=== PATIENT | male | born 1985 | race Caucasian/White ===

== ENCOUNTER 2020-03-25 10:42 | Inpatient (IN) | payer MEDICARE, OTHER ==
--- NOTE | 2020-03-25 11:14 | PDOC ---
History of Present Illness - General History Source: Patient Exam Limitations: No Limitations <Kusum Waldron - Last Filed: 03/25/20 20:45> <Donnie Britton - Last Filed: 03/26/20 19:14> - General Chief Complaint: Pain Stated Complaint: ABD. PAIN Time Seen by Provider: 03/25/20 10:48 Past History - Travel History Traveled outside of the country in the last 30 days: No Close contact w/someone who was outside of country & ill: No - Psycho-Social/Smoking History Smoking Status: No Smoking History: Never smoked Number of Cigarettes Smoked Daily: 0 Information on smoking cessation initiated: No - Substance Abuse Hx (Audit-C & DAST Scrn) How often the patient has a drink containing alcohol: Never Score: In Men: 4 or > Positive; In Women: 3 or > Positive: 0 Screen Result (Pos requires Nsg. Audit-10AR): Negative <Kusum Waldron - Last Filed: 03/25/20 20:45> <Donnie Britton - Last Filed: 03/26/20 19:14> - Medical History Allergies/Adverse Reactions: Allergies Allergy/AdvReac Type Severity Reaction Status Date / Time No Known Allergies Allergy Verified 09/10/12 06:57 Home Medications: Ambulatory Orders Fenofibrate Nanocrystallized [Tricor] 145 mg PO DAILY #30 tablet 09/13/12 Review of Systems - Review of Systems Able to Perform ROS?: Yes Comments:: 03/25/20 11:51 CONSTITUTIONAL: Absent: fever, chills, diaphoresis, generalized weakness, malaise, loss of appetite HEENT: Absent: rhinorrhea, nasal congestion, throat pain, throat swelling, difficulty swallowing, mouth swelling, ear pain, eye pain, visual Changes CARDIOVASCULAR: Absent: chest pain, loss of consciousness, palpitations, irregular heart rate, peripheral edema RESPIRATORY: Absent: cough, shortness of breath, dyspnea with exertion, orthopnea, wheezing, stridor, hemoptysis GASTROINTESTINAL: Present: Abdominal pain, vomiting, nausea absent: abdominal pain, abdominal distension, nausea, vomiting, diarrhea, constipation, melena, hematochezia GENITOURINARY: Absent: dysuria, frequency, urgency, hesitancy, hematuria, flank pain, genital pain MUSCULOSKELETAL: Absent: myalgia, arthralgia, joint swelling SKIN: Absent: rash, itching, pallor HEMATOLOGIC/IMMUNOLOGIC: Absent: easy bleeding, easy bruising, lymphadenopathy, frequent infections ENDOCRINE: Absent: unexplained weight gain, unexplained weight loss, heat intolerance, cold intolerance NEUROLOGIC: Absent: headache, focal weakness or paresthesias, dizziness, unsteady gait, seizure, mental status changes, bladder or bowel incontinence PSYCHIATRIC: Absent: anxiety, depression, suicidal or homicidal ideation, hallucinations. Is the patient limited Romansh proficient: No <Kusum Waldron - Last Filed: 03/25/20 20:45> *Physical Exam - Vital Signs Last Vital Signs Temp Pulse Resp BP Pulse Ox 98.5 F 65 17 121/76 99 03/25/20 10:44 03/25/20 10:44 03/25/20 10:44 03/25/20 10:44 03/25/20 10:44 - Physical Exam 03/25/20 11:53 GENERAL: Well developed, well nourished. Awake and alert. No acute distress. HEENT: Normocephalic, atraumatic. PERRLA, EOMI. No conjunctival pallor. Sclera are non- icteric. Moist mucous membranes. Oropharynx is clear. NECK: Supple. Full ROM. No JVD. Carotid pulses 2+ and symmetric, without bruits. No thyromegaly. No lymphadenopathy. CARDIOVASCULAR: Regular rate and rhythm. No murmurs, rubs, or gallops. Distal pulses are 2+ and symmetric. PULMONARY: No evidence of respiratory distress. Lungs clear to auscultation bilaterally. No wheezing, rales or rhonchi. ABDOMINAL: Tenderness palpation over McBurney's point, right lower quadrant with guarding. Positive Rovsing sign. Soft. Non-tender. Non-distended. No rebound or guarding. No organomegaly. Normoactive bowel sounds. MUSCULOSKELETAL Normal range of motion at all joints. No bony deformities or tenderness. No CVA tenderness. EXTREMITIES: No cyanosis. No clubbing. No edema. No calf tenderness. SKIN: Warm and dry. Normal capillary refill. No rashes. No jaundice. NEUROLOGICAL: Alert, awake, appropriate. Cranial nerves 2-12 intact. No deficits to light touch and temperature in face, upper extremities and lower extremities. No motor deficits in the in face, upper extremities and lower extremities. Normoreflexic in the upper and lower extremities. Normal speech. Toes are down-going bilaterally. Gait is normal without ataxia. PSYCHIATRIC: Cooperative. Good eye contact. Appropriate mood and affect. <Kusum Waldron - Last Filed: 03/25/20 20:45> - Vital Signs Last Vital Signs Temp Pulse Resp BP Pulse Ox 98.3 F 120 H 18 119/75 96 03/26/20 18:00 03/26/20 18:00 03/26/20 18:00 03/26/20 18:00 03/26/20 18:00 <Donnie Britton - Last Filed: 03/26/20 19:14> ED Treatment Course - LABORATORY CBC & Chemistry Diagram: 03/25/20 12:02 03/25/20 12:02 <Kusum Waldron - Last Filed: 03/25/20 20:45> - LABORATORY CBC & Chemistry Diagram: 03/26/20 18:32 03/26/20 06:00 - ADDITIONAL ORDERS Additional order review: 03/25/20 14:01 Urine Culture - Final Urine - Urine Clean Catch NO GROWTH OBTAINED 03/25/20 03/25/20 18:46 12:02 RBC 4.22 MCV 92.9 MCHC 38.3 H RDW 13.0 MPV 9.0 Neutrophils % 87.3 H D Lymphocytes % 7.8 L D Monocytes % 4.1 Eosinophils % 0.1 D Basophils % 0.7 POC Glucometer 164 - Medications Given in the ED: ED Medications Discontinued Medications Generic Name Dose Route Start Last Admin Trade Name Emiliano PRN Reason Stop Dose Admin Acetaminophen 1,000 mg 03/25/20 11:43 03/25/20 12:12 Ofirmev Injection - IVPB 03/25/20 11:44 1,000 mg ONCE ONE Administration Acetaminophen 1,000 mg 03/25/20 18:25 03/25/20 20:34 Ofirmev Injection - IVPB 03/25/20 18:26 1,000 mg ONCE ONE Administration Calcium Gluconate 1,000 mg 03/25/20 22:26 03/25/20 22:51 Calcium Gluconate 10% - IVPUSH 03/25/20 22:27 1,000 mg ONCE ONE Administration Calcium Gluconate 1,000 mg 03/26/20 01:48 03/26/20 02:00 Calcium Gluconate 10% - IVPUSH 03/26/20 01:49 1,000 mg ONCE ONE Administration Calcium Gluconate 1,000 mg 03/26/20 08:45 03/26/20 09:30 Calcium Gluconate 10% - IVPUSH 03/26/20 08:46 1,000 mg ONCE ONE Administration Hydromorphone HCl 0.5 mg 03/25/20 15:35 03/25/20 16:10 Dilaudid Injection - IVPB 03/25/20 15:36 0.5 mg ONCE ONE Administration Hydromorphone HCl 0.5 mg 03/25/20 19:01 03/25/20 19:25 Dilaudid Injection - IVPB 03/25/20 19:02 0.5 mg ONCE ONE Administration Hydromorphone HCl 0.5 mg 03/25/20 22:04 03/25/20 22:43 Dilaudid Vial - IVPUSH 03/25/20 22:05 0.5 mg ONCE ONE Administration Hydromorphone HCl 0.5 mg 03/26/20 02:34 03/26/20 02:48 Dilaudid Vial - IVPUSH 03/26/20 02:35 0.5 mg ONCE ONE Administration Hydromorphone HCl 0.5 mg 03/26/20 11:13 03/26/20 11:26 Dilaudid Injection - IVPUSH 03/26/20 11:14 0.5 mg ONCE ONE Administration Hydromorphone HCl 0.5 mg 03/26/20 11:13 03/26/20 10:26 Dilaudid Vial - IVPUSH 03/26/20 11:14 Not Given ONCE ONE Hydromorphone HCl 0.5 mg 03/26/20 17:01 03/26/20 18:27 Dilaudid Vial - IVPUSH 03/26/20 17:02 0.5 mg ONCE ONE Administration Sodium Chloride 1,000 mls @ 1,000 mls/hr 03/25/20 11:43 03/25/20 12:12 Normal Saline - IV 03/25/20 12:42 1,000 mls/hr ASDIR STA Administration Famotidine/Sodium Chloride 20 mg in 50 mls @ 100 mls/hr 03/25/20 11:43 03/25/20 12:13 Pepcid 20 Mg Premixed Ivpb - IVPB 03/25/20 12:12 100 mls/hr ONCE ONE Administration Lactated Ringer's 1,000 ml in 1,000 mls @ 125 mls/hr 03/25/20 13:45 03/25/20 17:17 Lactated Ringers Solution IV 125 mls/hr ASDIR PAMELA Administration Potassium Chloride/Dextrose/Sod Cl 20 meq in 1,000 mls @ 125 mls/hr 03/25/20 18:15 03/25/20 18:37 D5-1/2ns+20 Meq Kcl - IV 125 mls/hr ASDIR PAMELA Administration Potassium Chloride 10 meq in 100 mls @ 100 mls/hr 03/26/20 02:00 03/26/20 03:59 Potassium Chloride 10 Meq Premix Ivpb - IVPB 03/26/20 04:59 100 mls/hr Q60M PAMELA Administration Morphine Sulfate 4 mg 03/25/20 13:05 03/25/20 13:13 Morphine Injection - IVPUSH 03/25/20 13:06 4 mg ONCE ONE Administration Ondansetron HCl 4 mg 03/25/20 11:43 03/25/20 12:13 Zofran Injection IVPUSH 03/25/20 11:44 4 mg ONCE ONE Administration Polyethylene Glycol 17 gm 03/26/20 11:16 03/26/20 11:28 Miralax (For Daily Use) - PO 03/26/20 11:17 17 gm ONCE ONE Administration Potassium Chloride 40 meq 03/26/20 01:47 03/26/20 03:27 Potassium Chloride Oral Liquid PO 03/26/20 01:48 Not Given ONCE ONE Potassium Chloride 40 meq 03/26/20 06:23 03/26/20 06:44 Potassium Chloride Oral Liquid PO 03/26/20 06:24 40 meq ONCE ONE Administration Potassium Phos/Sodium Phos 1 packet 03/26/20 08:15 03/26/20 09:30 Phos-Nak Packet - PO 03/26/20 08:16 1 packet ONCE ONE Administration <Donnie Britton - Last Filed: 03/26/20 19:14> Medical Decision Making - Medical Decision Making 03/25/20 11:53 The patient is a 34-year-old male with no past medical history who presents to the ER today for abdominal pain starting this morning. He states that the pain was located in the middle of his stomach and has moved to his epigastric region. He states that he feels like there is a burning inside of his stomach. Denies any new foods. No sick contacts at home. Admits to nausea and vomiting. Denies fevers, chills, cough, diarrhea, chest pain and difficulty breathing. Denies alcohol use. A/P: Abdominal pain On exam patient is tender to palpation over McBurney's point as well as in the right lower quadrant and epigastric regions. Positive Rovsing sign. Cannot rule out appendicitis at this time. Basic labs, IV fluids and pain medication ordered. Reevaluate 03/25/20 18:14 CT negative for appendicitis however does show acute pancreatitis. No gallstones seen on ultrasound. Notable for fatty liver. CBD 0.5 cm, within normal limits Lipase over 9000. Patient is hypertriglyceridemia with a value over 4000. Likely triglyceride induced pancreatitis. We will need to place patient on an insulin drip, glucose 223 at this time. We will add fluids dextrose 5% half-normal saline with 20 Yanni use of potassium Patient to go to ICU. Case discussed with Dr. Velasquez. Attending Dr. Jean Baptiste. <Kusum Waldron - Last Filed: 03/25/20 20:45> - Medical Decision Making 03/26/20 19:14 I reviewed the case of the mid-level practitioner and was available for consultation while in the emergency department <Donnie Britton - Last Filed: 03/26/20 19:14> Discharge - Discharge Information Problems reviewed: Yes - Admission Yes <Kusum Waldron - Last Filed: 03/25/20 20:45> <Donnie Britton - Last Filed: 03/26/20 19:14> - Discharge Information Clinical Impression/Diagnosis: Hypertriglyceridemia Pancreatitis Qualifiers: Chronicity: acute Pancreatitis type: other Acute pancreatitis complication: no infection or necrosis Qualified Code(s): K85.80 - Other acute pancreatitis without necrosis or infection Condition: Guarded
[2020-03-25] MEDS ORDERED: SODIUM CHLORIDE 1,000 ML IV STA (11:43)
[2020-03-25] MEDS ORDERED: ONDANSETRON 4 MG/2 ML VIAL IVPUSH ONE (11:43)
[2020-03-25] MEDS ORDERED: FAMOTIDINE 20 MG/50 ML IVPB 20 MG/50 ML MG IVPB ONE ×2 (11:43→11:54)
[2020-03-25] MEDS ORDERED: ACETAMINOPHEN 1000 MG/100 ML VIAL (NON FORMULARY) IVPB ONE ×2 (11:43→18:25)
[2020-03-25] MEDS ORDERED: ACETAMINOPHEN INJECTION 100 ML IVPB ONE ×2 (11:54→20:31)
[2020-03-25 12:43] LABS: BASO % 0.7 % (0-2.0); EOS % 0.1 % (0-4.5); LYMPH % 7.8 % (8-40); MCH 36.5 pg (25.7-33.7); MEAN CELL VOLUME 92.9 fl (80-96); MONO % 4.1 % (3.8-10.2); NEUT % 87.3 % (42.8-82.8); PLATELET COUNT 216 K/MM3 (134-434); RBC 4.22 M/mm3 (4.00-5.60); WHITE BLOOD COUNT 13.2 K/mm3 (4.0-10.0)
[2020-03-25 12:52] LABS: INR 0.89 (0.83-1.09); PROTHROMBIN TIME (PATIENT) 10.5 SEC (9.7-13.0)
[2020-03-25] MEDS ORDERED: morphine CARPU-JECT 4 MG/1 ML DISP.SYRIN IVPUSH ONE (13:05)
[2020-03-25] MEDS ORDERED: morphine SULFATE 4 MG/ML VIAL ONE (13:08)
[2020-03-25 13:17] LABS: ALBUMIN 3.9 g/dl (3.4-5.0); ALK PHOS 106 U/L (45-117); ANION GAP 10 MMOL/L (8-16); BILIRUBIN,TOTAL 0.9 mg/dL (0.2-1); BLOOD UREA NITROGEN 13.1 mg/dL (7-18); CHLORIDE 97 mmol/L (98-107); CO2 26 mmol/L (21-32); CREATININE 0.7 mg/dL (0.55-1.3); GLUCOSE,RANDOM 229 mg/dL (74-106); LIPASE 9273 U/L (73-393); SODIUM 133 mmol/L (136-145); TOT PROT 7.8 g/dl (6.4-8.2)
[2020-03-25] MEDS ORDERED: LACTATED RINGERS SOLUTION 1,000 ML/1,000 ML INFUS.BAG IV SCH ×2 (13:45→20:00)
[2020-03-25 14:34] LABS: URINE APPEARANCE CLOUDY; URINE BILIRUBIN NEGATIVE (NEGATIVE); URINE COLOR YELLOW; URINE GLUCOSE (UA) NEGATIVE (NEGATIVE); URINE KETONE NEGATIVE (NEGATIVE); URINE LEUK ESTERASE NEGATIVE (NEGATIVE); URINE NITRITE NEGATIVE (NEGATIVE); URINE PROTEIN TRACE (NEGATIVE); URINE UROBILINOGEN 0.2 mg/dL (0.2-1.0)
[2020-03-25 14:49] LABS: HEMATOCRIT 39.8 % (35.4-49); HEMOGLOBIN 15.3 GM/dL (11.7-16.9); MCHC 38.3 g/dl (32.0-35.9)
--- NOTE | 2020-03-25 14:51 | EKG ---
Test Reason : Blood Pressure : / mmHG Vent. Rate : 059 BPM Atrial Rate : 059 BPM P-R Int : 150 ms QRS Dur : 108 ms QT Int : 430 ms P-R-T Axes : 045 002 025 degrees QTc Int : 425 ms SINUS BRADYCARDIA WITH PREMATURE SUPRAVENTRICULAR COMPLEXES INCOMPLETE RIGHT BUNDLE BRANCH BLOCK BORDERLINE ECG WHEN COMPARED WITH ECG OF 04-MAR-2011 09:56, PREMATURE SUPRAVENTRICULAR COMPLEXES ARE NOW PRESENT VENT. RATE HAS DECREASED BY 50 BPM INCOMPLETE RIGHT BUNDLE BRANCH BLOCK IS NOW PRESENT Confirmed by DALE LI MD ([id number]) on 03/25/2020 2:50:57 PM Referred By: Confirmed By:DALE LI MD
[2020-03-25] MEDS ORDERED: HYDROmorphone HCL CARPU-JECT 2 MG/1 ML DISP.SYRIN IVPB ONE ×2 (15:35→19:01)
[2020-03-25] MEDS ORDERED: HYDROmorphone HCl 2 MG/ML VIAL ONE ×2 (16:06→19:17)
[2020-03-25 17:23] LABS: LDL CHOLESTEROL (ONLY SJRH) 98 mg/dL (5-100)
[2020-03-25 17:30] LABS: CHOLESTEROL 334 mg/dL (50-200); HDL CHOLESTEROL 25 mg/dL (40-60); TRIGLYCERIDES > 4000 mg/dL (0-150)
[2020-03-25] MEDS ORDERED: INSULIN REGULAR HUMAN 100 UNITS/ML *VIAL ONE (18:13)
[2020-03-25] MEDS ORDERED: D5-1/2NS+20 MEQ KCL - 20 MEQ/1,000 ML INFUS.BAG IV SCH (18:15)
[2020-03-25] MEDS: INSULIN REGULAR 100 UNITS in SODIUM CHLORIDE 99 ML IVPB SCH (18:37)
--- NOTE | 2020-03-25 20:03 | CONSULT ---
Consultation: REQUESTING PROVIDER: Ambrocio Waldron CONSULT REQUEST: We have been asked to medically evaluate this patient for pancreatitis. HISTORY OF PRESENT ILLNESS: Pt is a 34 y/o male with hx of pancreatitis who presents with sudden onset epigastric abdominal pain this morning. Pt was laying down in bed and felt epigastric burning with increase in severity over the course of 1 hour. He reports pain radiating to RLQ. Motrin did not improve the pain. He has had loose yellow stool x1 in the morning, as well as nausea, vomiting, and loss of appetite. He denies fever and chills. He reports ETOH use on the weekends, drinking up to a 12 pack of beer. No family hx of pancreatitis. REVIEW OF SYSTEMS: see HPI PHYSICAL EXAMINATION Vital Signs - 24 hr 03/25/20 03/25/20 10:44 11:43 Temperature 98.5 F Pulse Rate 65 Respiratory 17 Rate Blood Pressure 121/76 O2 Sat by Pulse 99 98 Oximetry (%) GENERAL: Awake, alert, and fully oriented. HEAD: Normal with no signs of trauma. EYES: Pupils equal, round and reactive to light, extraocular movements intact, sclera anicteric, conjunctiva clear. EARS, NOSE, THROAT: Ears normal, nares patent, moist mucous membranes. NECK: Normal range of motion. LUNGS: Clear to auscultation bilaterally. HEART: Regular rate and rhythm, no murmur. ABDOMEN: Hard, epigastric tenderness, not distended, normoactive bowel sounds. MUSCULOSKELETAL: Normal range of motion at all joints. UPPER EXTREMITIES: Warm, well-perfused. No peripheral edema. LOWER EXTREMITIES: Warm, well-perfused. No peripheral edema. NEUROLOGICAL: Cranial nerves II-XII intact. Normal speech. PSYCHIATRIC: Cooperative. Good eye contact. Appropriate mood and affect. SKIN: Warm, dry, normal turgor. Laboratory Results - last 24 hr 03/25/20 03/25/20 03/25/20 12:02 12:02 12:02 WBC 13.2 H RBC 4.22 Hgb 15.3 Hct 39.8 MCV 92.9 MCH 36.5 H D MCHC 38.3 H RDW 13.0 Plt Count 216 D MPV 9.0 Absolute Neuts (auto) 11.5 H Neutrophils % 87.3 H D Lymphocytes % 7.8 L D Monocytes % 4.1 Eosinophils % 0.1 D Basophils % 0.7 Nucleated RBC % 0 PT with INR 10.50 INR 0.89 Sodium 133 L Potassium 4.0 Chloride 97 L Carbon Dioxide 26 Anion Gap 10 BUN 13.1 Creatinine 0.7 Est GFR (CKD-EPI)AfAm 140.71 Est GFR (CKD-EPI)NonAf 121.41 POC Glucometer Random Glucose 229 H Calcium 7.0 L Total Bilirubin 0.9 AST ALT Alkaline Phosphatase 106 Total Protein 7.8 Albumin 3.9 Triglycerides > 4000 H Cholesterol 334 H Total LDL Cholesterol 98 HDL Cholesterol 25 L Lipase 9273 H Urine Color Urine Appearance Urine pH Ur Specific [place] Urine Protein Urine Glucose (UA) Urine Ketones Urine Blood Urine Nitrite Urine Bilirubin Urine Urobilinogen Ur Leukocyte Esterase 03/25/20 03/25/20 03/25/20 14:01 18:46 19:24 WBC RBC Hgb Hct MCV MCH MCHC RDW Plt Count MPV Absolute Neuts (auto) Neutrophils % Lymphocytes % Monocytes % Eosinophils % Basophils % Nucleated RBC % PT with INR INR Sodium Potassium Chloride Carbon Dioxide Anion Gap BUN Creatinine Est GFR (CKD-EPI)AfAm Est GFR (CKD-EPI)NonAf POC Glucometer 164 163 Random Glucose Calcium Total Bilirubin AST ALT Alkaline Phosphatase Total Protein Albumin Triglycerides Cholesterol Total LDL Cholesterol HDL Cholesterol Lipase Urine Color Yellow Urine Appearance Cloudy Urine pH 7.0 Ur Specific [place] 1.018 Urine Protein Trace Urine Glucose (UA) Negative Urine Ketones Negative Urine Blood Negative Urine Nitrite Negative Urine Bilirubin Negative Urine Urobilinogen 0.2 Ur Leukocyte Esterase Negative Active Medications Active Medications Generic Name Dose Route Start Last Admin Trade Name Freq PRN Reason Stop Dose Admin Insulin Human Regular 100 100 mls @ 4 mls/hr 03/25/20 18:15 03/25/20 18:37 units/ Sodium Chloride IVPB 4 units/hr TITR PAMELA 4 mls/hr Administration Protocol 4 UNITS/HR Dextrose/Lactated Ringer's 1,000 mls @ 250 mls/hr 03/25/20 20:15 D5-Lr - IV ASDIR [facility] ASSESSMENT/PLAN: Pt is a 34 y/o male with hx of pancreatitis who presents with sudden onset epigastric abdominal pain this morning. Triglycerides were initially >4000 (out of range) and lipase was 9273. He is admitted for hypertriglyceridemia-induced acute pancreatitis. #neuro -awake and alert #cardio -hemodynamically stable -tele monitoring for significant hypertriglyceridemia #pulm -stable on room air -keep SpO2 >90 #GI -hypertriglyceridemia-induced acute pancreatitis -LR D5 @250mL/hr, titrate with following BGMs and fluid status -insulin gtt, stop when triglycerides <500 -hourly BGMs -Q12H triglycerides -monitor BMP for hypokalemia/hypoglycemia while on insulin -pain management- Dilaudid or demerol preferred over morphine because of increase in pressure of Sphincter of Oddi -can calculate [place] score at 48 hour monty #renal -monitor electrolytes -monitor Cr for hypoperfusion 2/2 vascular leak #ID -no evidence for infection at this time -continue to monitor lactic acid, WBC, vitals DVT Ppx Lovenox 40mg daily FEN LR D5 @250mL/hr monitor K, triglycerides NPO Dispo: ICU We will continue to follow the patient. Thank you for this consultative opportunity. Visit type - Emergency Visit Emergency Visit: Yes ED Registration Date: 03/25/20 Care time: The patient presented to the Emergency Department on the above date and was hospitalized for further evaluation of their emergent condition. - New Patient This patient is new to me today: Yes Date on this admission: 03/25/20 - Critical Care Critical Care patient: Yes Total Critical Care Time (in minutes): 36 Critical Care Statement: The care of this patient involved high complexity decision making to prevent further life threatening deterioration of the patient's condition and/or to evaluate & treat vital organ system(s) failure or risk of failure. ATTENDING PHYSICIAN STATEMENT I saw and evaluated the patient. I reviewed the resident's note and discussed the case with the resident. I agree with the resident's findings and plan as documented. SUBJECTIVE: OBJECTIVE: ASSESSMENT AND PLAN:
[2020-03-25 21:06] LABS: BLOOD UREA NITROGEN 10.7 mg/dL (7-18); CREATININE 0.7 mg/dL (0.55-1.3)
[2020-03-25 21:09] LABS: CALCIUM 6.8 mg/dL (8.5-10.1)
[2020-03-25] MEDS ORDERED: HYDROmorphone HCl 2 MG/ML VIAL IVPUSH ONE (22:04)
[2020-03-25 22:14] VITALS: BMI 28.3
[2020-03-25] MEDS ORDERED: CALCIUM GLUCONATE 10% - 1,000 MG/10 ML VIAL IVPUSH ONE (22:26)
[2020-03-25] MEDS: DEXTROSE 5%-LACTATED RINGERS 1,000 ML IV SCH (22:42)
[2020-03-25] MEDS: CHLORHEXIDINE GLUCONATE 4% CLEANSER FOR DECOLONIZATION TP SCH (22:43)
[2020-03-25] MEDS: MUPIROCIN 2% TOPICAL OINTMENT FOR DECOLONIZATION NS SCH (22:51)
[2020-03-26 01:00] LABS: ALBUMIN 3.3 g/dl (3.4-5.0); BILIRUBIN,TOTAL 0.4 mg/dL (0.2-1); BLOOD UREA NITROGEN 10.8 mg/dL (7-18); CALCIUM 7.3 mg/dL (8.5-10.1); CREATININE 0.7 mg/dL (0.55-1.3); POTASSIUM 3.3 mmol/L (3.5-5.1)
[2020-03-26] MEDS ORDERED: POTASSIUM CHLORIDE ORAL LIQUID 20 MEQ/15 ML PO ONE ×3 (01:47→21:06)
[2020-03-26] MEDS ORDERED: CALCIUM GLUCONATE 10% - 1,000 MG/10 ML VIAL IVPUSH ONE ×2 (01:48→08:45)
[2020-03-26] MEDS: KCL 10 MEQ IVPB 10 MEQ/100 ML INFUS.BAG IVPB SCH ×6 (02:00→22:12)
[2020-03-26] MEDS ORDERED: HYDROmorphone HCl 2 MG/ML VIAL IVPUSH ONE ×4 (02:34→22:27)
[2020-03-26 06:34] LABS: BASO % 0.2 % (0-2.0); EOS % 0.1 % (0-4.5); HEMATOCRIT 38.4 % (35.4-49); HEMOGLOBIN 13.1 GM/dL (11.7-16.9); LYMPH % 16.4 % (8-40); MCH 31.8 pg (25.7-33.7); MEAN CELL VOLUME 93.4 fl (80-96); MEAN PLT VOLUME 8.8 fl (7.5-11.1); MONO % 4.5 % (3.8-10.2); NEUT % 78.8 % (42.8-82.8); PLATELET COUNT 166 K/MM3 (134-434); RBC 4.11 M/mm3 (4.00-5.60); WHITE BLOOD COUNT 7.3 K/mm3 (4.0-10.0)
[2020-03-26 06:47] LABS: MAGNESIUM 2.1 mg/dL (1.8-2.4)
[2020-03-26 07:06] LABS: BILIRUBIN,TOTAL 0.4 mg/dL (0.2-1); BLOOD UREA NITROGEN 9.6 mg/dL (7-18); CALCIUM 7.2 mg/dL (8.5-10.1); CREATININE 0.8 mg/dL (0.55-1.3); MAGNESIUM 2.1 mg/dL (1.8-2.4); PHOSPHOROUS 2.4 mg/dL (2.5-4.9); POTASSIUM 3.9 mmol/L (3.5-5.1); TOT PROT 6.2 g/dl (6.4-8.2)
[2020-03-26] MEDS ORDERED: NAPH,MB-DB/K PH,MBDB POWDER PACKET PO ONE (08:15)
[2020-03-26] MEDS: ENOXAPARIN NA (PORCINE) 40 MG/0.4 ML DISP.SYRIN SQ SCH (09:30)
[2020-03-26] MEDS: DEXTROSE 5%-LACTATED RINGERS 1,000 ML IV SCH ×2 (09:31→20:30)
[2020-03-26] MEDS: MUPIROCIN 2% TOPICAL OINTMENT FOR DECOLONIZATION NS SCH ×2 (09:32→21:21)
[2020-03-26] MEDS ORDERED: HYDROmorphone HCL CARPU-JECT 2 MG/1 ML DISP.SYRIN IVPUSH ONE (11:13)
[2020-03-26] MEDS ORDERED: POLYETHYLENE GLYCOL 3350 119 GM BTL PO ONE (11:16)
[2020-03-26] MEDS ORDERED: HYDROmorphone HCl 2 MG/ML VIAL ONE (11:25)
--- NOTE | 2020-03-26 13:39 | CONSULT ---
Consultation: REQUESTING PROVIDER: Dr. Velasquez CONSULT REQUEST: We have been asked to medically evaluate this patient for apharesis. HISTORY OF PRESENT ILLNESS: Pt. is 34 y.o. M w/ PMHx. of pancreatitis 2/2 elevated triglycerides per patient presents with abdominal pain that started the morning of hospital admission. Pt. endorses pain when he hiccups and states that some morning he wakes up with a burning sensation in his lower chest/upper abdomen requiring him to drink water. Pt. endorses drinking 24 beers split over Sunday and Sunday every week. Pt. states that his abdomen is larger than normal but is unable to tell me when it began. He noticed it the day of admission. Pt. denies taking any medications at this time. Pt. does not have a PCP. Pt. endorses the urge to pass stool but the inability to do so. Pt. denies any blood in the stool or urine, night sweats, weight loss, or diarrhea. Pt. denies any family history of cancers, bleeding disorders, clotting disorders, high cholesterol or triglycerides. Pt. does endorse EtOH abuse in his uncles and cousins. Pt. endorses RLQ abdominal pain at rest that started today. Yesterday it was diffuse abdominal pain at rest that was most prominent in the epigastrium and RUQ on palpation. We are called to assess Pt. for apharesis to treat his hypertriglyceridemia. REVIEW OF SYSTEMS: As above PHYSICAL EXAMINATION Vital Signs - 24 hr 03/25/20 03/25/20 03/25/20 19:10 21:15 21:47 Temperature 98.9 F 99.7 F H Pulse Rate 98 H Pulse Rate [ 99 H 99 H Left Radial] Respiratory 16 18 14 Rate Blood Pressure 112/68 Blood Pressure 123/75 118/72 [Right Arm] O2 Sat by Pulse 97 98 98 Oximetry (%) 03/25/20 03/26/20 03/26/20 23:00 00:00 01:00 Temperature Pulse Rate 101 H 97 H 98 H Pulse Rate [ Left Radial] Respiratory 23 H 19 25 H Rate Blood Pressure 116/79 117/70 121/83 Blood Pressure [Right Arm] O2 Sat by Pulse 99 98 99 Oximetry (%) 03/26/20 03/26/20 03/26/20 02:00 03:00 04:00 Temperature 98.7 F Pulse Rate 101 H 104 H 106 H Pulse Rate [ Left Radial] Respiratory 25 H 18 16 Rate Blood Pressure 116/79 115/74 110/74 Blood Pressure [Right Arm] O2 Sat by Pulse 99 99 99 Oximetry (%) 03/26/20 06:00 Temperature 100.0 F H Pulse Rate 101 H Pulse Rate [ Left Radial] Respiratory 24 H Rate Blood Pressure 120/74 Blood Pressure [Right Arm] O2 Sat by Pulse 98 Oximetry (%) GENERAL: Awake, alert, and fully oriented, in no acute distress. HEAD: Normal with no signs of trauma. EYES: Sclera anicteric, conjunctiva clear. EARS, NOSE, THROAT: Ears normal, nares patent, oropharynx clear without exudates. Dry mucous membranes. LUNGS: Breath sounds equal, clear to auscultation bilaterally. No wheezes, and no crackles. No accessory muscle use. HEART: Regular rate and rhythm, normal S1 and S2 without murmur ABDOMEN: Firm but NOT rigid abdomen, epigastric and RUQ tenderness, BS + MUSCULOSKELETAL: Normal range of motion at all joints. No bony deformities or tenderness. No CVA tenderness. UPPER EXTREMITIES: 2+ radial pulses, warm, well-perfused. No cyanosis. No clubbing. Cap refill <2 seconds. No peripheral edema. LOWER EXTREMITIES: 2+ dorsal pedal pulses, warm, well-perfused. No calf tenderness. No peripheral edema. NEUROLOGICAL: No focal deficits appreciated, Normal speech. Gait not assessed PSYCHIATRIC: Cooperative. Good eye contact. Appropriate mood and affect. SKIN: Warm, dry, normal turgor Laboratory Results - last 24 hr 03/25/20 03/25/20 03/25/20 12:02 12:02 14:01 WBC RBC Hgb 15.3 Hct 39.8 MCV MCH MCHC 38.3 H RDW Plt Count MPV Absolute Neuts (auto) Neutrophils % Lymphocytes % Monocytes % Eosinophils % Basophils % Nucleated RBC % Sodium 133 L Potassium 4.0 Chloride 97 L Carbon Dioxide 26 Anion Gap 10 BUN 13.1 Creatinine 0.7 Est GFR (CKD-EPI)AfAm 140.71 Est GFR (CKD-EPI)NonAf 121.41 POC Glucometer Random Glucose 229 H Lactic Acid Calcium 7.0 L Phosphorus Magnesium Total Bilirubin 0.9 AST ALT Alkaline Phosphatase 106 Total Protein 7.8 Albumin 3.9 Triglycerides > 4000 H Cholesterol 334 H Total LDL Cholesterol 98 HDL Cholesterol 25 L Lipase 9273 H Urine Color Yellow Urine Appearance Cloudy Urine pH 7.0 Ur Specific [place] 1.018 Urine Protein Trace Urine Glucose (UA) Negative Urine Ketones Negative Urine Blood Negative Urine Nitrite Negative Urine Bilirubin Negative Urine Urobilinogen 0.2 Ur Leukocyte Esterase Negative 03/25/20 03/25/20 03/25/20 18:46 19:24 20:25 WBC RBC Hgb Hct MCV MCH MCHC RDW Plt Count MPV Absolute Neuts (auto) Neutrophils % Lymphocytes % Monocytes % Eosinophils % Basophils % Nucleated RBC % Sodium 135 L Potassium 4.0 Chloride 102 Carbon Dioxide 24 Anion Gap 9 BUN 10.7 Creatinine 0.7 Est GFR (CKD-EPI)AfAm 140.71 Est GFR (CKD-EPI)NonAf 121.41 POC Glucometer 164 163 Random Glucose 186 H Lactic Acid Calcium 6.8 L* Phosphorus Magnesium Total Bilirubin AST ALT Alkaline Phosphatase Total Protein Albumin Triglycerides Cholesterol Total LDL Cholesterol HDL Cholesterol Lipase Urine Color Urine Appearance Urine pH Ur Specific [place] Urine Protein Urine Glucose (UA) Urine Ketones Urine Blood Urine Nitrite Urine Bilirubin Urine Urobilinogen Ur Leukocyte Esterase 03/25/20 03/25/20 03/26/20 20:25 22:06 00:04 WBC RBC Hgb Hct MCV MCH MCHC RDW Plt Count MPV Absolute Neuts (auto) Neutrophils % Lymphocytes % Monocytes % Eosinophils % Basophils % Nucleated RBC % Sodium Potassium Chloride Carbon Dioxide Anion Gap BUN Creatinine Est GFR (CKD-EPI)AfAm Est GFR (CKD-EPI)NonAf POC Glucometer 145 151 Random Glucose Lactic Acid 1.3 Calcium Phosphorus Magnesium Total Bilirubin AST ALT Alkaline Phosphatase Total Protein Albumin Triglycerides Cholesterol Total LDL Cholesterol HDL Cholesterol Lipase Urine Color Urine Appearance Urine pH Ur Specific [place] Urine Protein Urine Glucose (UA) Urine Ketones Urine Blood Urine Nitrite Urine Bilirubin Urine Urobilinogen Ur Leukocyte Esterase 03/26/20 03/26/20 07 00:06 01:11 02:08 WBC RBC Hgb Hct MCV MCH MCHC RDW Plt Count MPV Absolute Neuts (auto) Neutrophils % Lymphocytes % Monocytes % Eosinophils % Basophils % Nucleated RBC % Sodium 137 Potassium 3.3 L Chloride 102 Carbon Dioxide 25 Anion Gap 10 BUN 10.8 Creatinine 0.7 Est GFR (CKD-EPI)AfAm 140.71 Est GFR (CKD-EPI)NonAf 121.41 POC Glucometer 154 147 Random Glucose 160 H Lactic Acid Calcium 7.3 L Phosphorus Magnesium 2.1 Total Bilirubin 0.4 AST 51 H ALT 66 H Alkaline Phosphatase 80 Total Protein 7.0 Albumin 3.3 L Triglycerides 2177 H Cholesterol Total LDL Cholesterol HDL Cholesterol Lipase Urine Color Urine Appearance Urine pH Ur Specific [place] Urine Protein Urine Glucose (UA) Urine Ketones Urine Blood Urine Nitrite Urine Bilirubin Urine Urobilinogen Ur Leukocyte Esterase 03/26/20 03/26/20 03/26/20 03:20 04:09 04:57 WBC RBC Hgb Hct MCV MCH MCHC RDW Plt Count MPV Absolute Neuts (auto) Neutrophils % Lymphocytes % Monocytes % Eosinophils % Basophils % Nucleated RBC % Sodium Potassium Chloride Carbon Dioxide Anion Gap BUN Creatinine Est GFR (CKD-EPI)AfAm Est GFR (CKD-EPI)NonAf POC Glucometer 153 100 120 Random Glucose Lactic Acid Calcium Phosphorus Magnesium Total Bilirubin AST ALT Alkaline Phosphatase Total Protein Albumin Triglycerides Cholesterol Total LDL Cholesterol HDL Cholesterol Lipase Urine Color Urine Appearance Urine pH Ur Specific [place] Urine Protein Urine Glucose (UA) Urine Ketones Urine Blood Urine Nitrite Urine Bilirubin Urine Urobilinogen Ur Leukocyte Esterase 03/26/20 03/26/20 03/26/20 06:00 06:00 08:40 WBC 7.3 RBC 4.11 Hgb 13.1 Hct 38.4 MCV 93.4 MCH 31.8 D MCHC 34.0 RDW 13.0 Plt Count 166 D MPV 8.8 Absolute Neuts (auto) 5.7 Neutrophils % 78.8 Lymphocytes % 16.4 D Monocytes % 4.5 Eosinophils % 0.1 Basophils % 0.2 Nucleated RBC % 0 Sodium 138 Potassium 3.9 Chloride 105 Carbon Dioxide 26 Anion Gap 7 L BUN 9.6 Creatinine 0.8 Est GFR (CKD-EPI)AfAm 133.20 Est GFR (CKD-EPI)NonAf 114.93 POC Glucometer 120 Random Glucose 120 H Lactic Acid Calcium 7.2 L Phosphorus 2.4 L Magnesium 2.1 Total Bilirubin 0.4 AST 36 ALT 50 Alkaline Phosphatase 66 Total Protein 6.2 L Albumin 3.0 L Triglycerides 1145 H Cholesterol Total LDL Cholesterol HDL Cholesterol Lipase Urine Color Urine Appearance Urine pH Ur Specific [place] Urine Protein Urine Glucose (UA) Urine Ketones Urine Blood Urine Nitrite Urine Bilirubin Urine Urobilinogen Ur Leukocyte Esterase 03/26/20 03/26/20 10:40 11:39 WBC RBC Hgb Hct MCV MCH MCHC RDW Plt Count MPV Absolute Neuts (auto) Neutrophils % Lymphocytes % Monocytes % Eosinophils % Basophils % Nucleated RBC % Sodium Potassium Chloride Carbon Dioxide Anion Gap BUN Creatinine Est GFR (CKD-EPI)AfAm Est GFR (CKD-EPI)NonAf POC Glucometer 104 Random Glucose Lactic Acid 0.8 Calcium Phosphorus Magnesium Total Bilirubin AST ALT Alkaline Phosphatase Total Protein Albumin Triglycerides Cholesterol Total LDL Cholesterol HDL Cholesterol Lipase Urine Color Urine Appearance Urine pH Ur Specific [place] Urine Protein Urine Glucose (UA) Urine Ketones Urine Blood Urine Nitrite Urine Bilirubin Urine Urobilinogen Ur Leukocyte Esterase Active Medications Generic Name Dose Route Start Last Admin Trade Name Emiliano PRN Reason Stop Dose Admin Chlorhexidine Gluconate 1 applic 03/25/20 22:00 03/25/20 22:43 Hibiclens For Decolonization - TP 1 applic HS PAMELA Administration Enoxaparin Sodium 40 mg 03/26/20 10:00 03/26/20 09:30 Lovenox - SQ 40 mg DAILY PAMELA Administration Insulin Human Regular 100 100 mls @ 4 mls/hr 03/25/20 18:15 03/25/20 18:37 units/ Sodium Chloride IVPB 4 units/hr TITR PAMELA 4 mls/hr Administration Protocol 4 UNITS/HR Dextrose/Lactated Ringer's 1,000 mls @ 250 mls/hr 03/25/20 20:15 03/26/20 09:31 D5-Lr - IV 250 mls/hr ASDIR PAMELA Administration Mupirocin 1 applic 03/25/20 22:00 03/26/20 09:32 Bactroban Ointment (For Decolonization) - NS 03/30/20 21:59 1 applic BID PAMELA Administration ASSESSMENT/PLAN: Pt. is 34 y.o. M w/ PMHx. of pancreatitis 2/2 elevated triglycerides per patient presents with abdominal pain that started the morning of hospital admission. #Hypertriglyceridemia Pt. started on Insulin gtt with marked improvement from 4000+ to now 1100. Next check is at 6pm LFTs now within normal limits CT A/P: significant for acute pancreatitis, hepatosplenomegaly with fatty infiltrates in the liver. Abd US: no CBD dilatation, diffuse hepatic steatosis. We anticipate that Pt. will be below 500mg/dL by 6pm. Pt. has had significant and promising response to insulin, therefore apharesis not needed at this time. Recommend starting Pt. on Fenofibrate, as Pt. was started on one in the past when last seen here, PCP followup for routine screening and discussed alcohol abuse/cessation with Pt. Please re-consult as needed. Dispo: Thank you for this consultative opportunity. Visit type - Emergency Visit Emergency Visit: Yes ED Registration Date: 03/25/20 Care time: The patient presented to the Emergency Department on the above date and was hospitalized for further evaluation of their emergent condition. - New Patient This patient is new to me today: Yes Date on this admission: 03/26/20 - Critical Care Critical Care patient: Yes Total Critical Care Time (in minutes): 45 Critical Care Statement: The care of this patient involved high complexity decision making to prevent further life threatening deterioration of the patient's condition and/or to evaluate & treat vital organ system(s) failure or risk of failure. ATTENDING PHYSICIAN STATEMENT I saw and evaluated the patient. I reviewed the resident's note and discussed the case with the resident. I agree with the resident's findings and plan as documented. SUBJECTIVE: OBJECTIVE: ASSESSMENT AND PLAN:
[2020-03-26] MEDS ORDERED: INSULIN REGULAR HUMAN 100 UNITS/ML *VIAL ONE (15:20)
--- NOTE | 2020-03-26 16:34 | PN ---
Teaching Attending Note Name of Resident: Teri Etienne ATTENDING PHYSICIAN STATEMENT I saw and evaluated the patient. I reviewed the resident's note and discussed the case with the resident. I agree with the resident's findings and plan as documented. SUBJECTIVE: Patient seen and examined in the ICU. Reports feeling a little better. Still with some mild generalized abdominal pain. Denies CP or SOB. Intake & Output 03/23/20 03/24/20 03/25/20 03/26/20 23:59 23:59 23:59 23:59 Intake Total 5539 Output Total 400 950 Balance -400 4589 Weight 186 lb 186 lb Last Vital Signs Temp Pulse Resp BP Pulse Ox 98.6 F 103 H 18 123/84 97 03/26/20 14:00 03/26/20 14:00 03/26/20 14:00 03/26/20 14:00 03/26/20 14:00 Active Medications Chlorhexidine Gluconate (Hibiclens For Decolonization -) 1 applic TP HS [facility] Last Admin: 03/25/20 22:43 Dose: 1 applic Documented by: Enoxaparin Sodium (Lovenox -) 40 mg SQ DAILY [facility] Last Admin: 03/26/20 09:30 Dose: 40 mg Documented by: Insulin Human Regular 100 (units/ Sodium Chloride) 100 mls @ 4 mls/hr IVPB TITR PAMELA; Protocol Last Admin: 03/25/20 18:37 Dose: 4 units/hr, 4 mls/hr Documented by: Dextrose/Lactated Ringer's (D5-Lr -) 1,000 mls @ 250 mls/hr IV ASDIR [facility] Last Admin: 03/26/20 09:31 Dose: 250 mls/hr Documented by: Mupirocin (Bactroban Ointment (For Decolonization) -) 1 applic NS BID [facility] Stop: 03/30/20 21:59 Last Admin: 03/26/20 09:32 Dose: 1 applic Documented by: GENERAL: Awake, alert, and fully oriented. HEAD: Normal with no signs of trauma. EYES: Pupils equal, round and reactive to light, extraocular movements intact, sclera anicteric, conjunctiva clear. EARS, NOSE, THROAT: Ears normal, nares patent, moist mucous membranes. NECK: Normal range of motion. LUNGS: Clear to auscultation bilaterally. HEART: Regular rate and rhythm, no murmur. ABDOMEN: Firm, (+) epigastric tenderness, not distended, normoactive bowel sounds. MUSCULOSKELETAL: Normal range of motion at all joints. UPPER EXTREMITIES: Warm, well-perfused. No peripheral edema. LOWER EXTREMITIES: Warm, well-perfused. No peripheral edema. NEUROLOGICAL: Non-focal PSYCHIATRIC: Cooperative. Good eye contact. Appropriate mood and affect. SKIN: Warm, dry, normal turgor. Laboratory Results - last 24 hr 03/25/20 03/25/20 03/25/20 12:02 12:02 12:02 WBC 13.2 H RBC 4.22 Hgb 15.3 Hct 39.8 MCV 92.9 MCH 36.5 H D MCHC 38.3 H RDW 13.0 Plt Count 216 D MPV 9.0 Absolute Neuts (auto) 11.5 H Neutrophils % 87.3 H D Lymphocytes % 7.8 L D Monocytes % 4.1 Eosinophils % 0.1 D Basophils % 0.7 Nucleated RBC % 0 PT with INR 10.50 INR 0.89 Sodium 133 L Potassium 4.0 Chloride 97 L Carbon Dioxide 26 Anion Gap 10 BUN 13.1 Creatinine 0.7 Est GFR (CKD-EPI)AfAm 140.71 Est GFR (CKD-EPI)NonAf 121.41 POC Glucometer Random Glucose 229 H Calcium 7.0 L Total Bilirubin 0.9 AST ALT Alkaline Phosphatase 106 Total Protein 7.8 Albumin 3.9 Triglycerides > 4000 H Cholesterol 334 H Total LDL Cholesterol 98 HDL Cholesterol 25 L Lipase 9273 H Urine Color Urine Appearance Urine pH Ur Specific [place] Urine Protein Urine Glucose (UA) Urine Ketones Urine Blood Urine Nitrite Urine Bilirubin Urine Urobilinogen Ur Leukocyte Esterase 03/25/20 03/25/20 03/25/20 14:01 18:46 19:24 WBC RBC Hgb Hct MCV MCH MCHC RDW Plt Count MPV Absolute Neuts (auto) Neutrophils % Lymphocytes % Monocytes % Eosinophils % Basophils % Nucleated RBC % PT with INR INR Sodium Potassium Chloride Carbon Dioxide Anion Gap BUN Creatinine Est GFR (CKD-EPI)AfAm Est GFR (CKD-EPI)NonAf POC Glucometer 164 163 Random Glucose Calcium Total Bilirubin AST ALT Alkaline Phosphatase Total Protein Albumin Triglycerides Cholesterol Total LDL Cholesterol HDL Cholesterol Lipase Urine Color Yellow Urine Appearance Cloudy Urine pH 7.0 Ur Specific [place] 1.018 Urine Protein Trace Urine Glucose (UA) Negative Urine Ketones Negative Urine Blood Negative Urine Nitrite Negative Urine Bilirubin Negative Urine Urobilinogen 0.2 Ur Leukocyte Esterase Negative Active Medications Active Medications Generic Name Dose Route Start Last Admin Trade Name Emiliano PRN Reason Stop Dose Admin Insulin Human Regular 100 100 mls @ 4 mls/hr 03/25/20 18:15 03/25/20 18:37 units/ Sodium Chloride IVPB 4 units/hr TITR PAMELA 4 mls/hr Administration Protocol 4 UNITS/HR Dextrose/Lactated Ringer's 1,000 mls @ 250 mls/hr 03/25/20 20:15 D5-Lr - IV ASDIR PAMELA ASSESSMENT/PLAN: Acute pancreatitis due to Hypertriglyceridemia IVF NPO IV Insulin If worsens : will need to consider plasmapheresis : clinically and laboratory data has been improving thus far Strict I & O VTE prophylaxis Monitor off ABX Continue ICU monitoring for tenuous status Dr Schultz Critical care time spent in reviewing chart, evaluating patient and formulating plan - 36 minutes.
--- NOTE | 2020-03-26 18:18 | PN ---
Physical Exam: SUBJECTIVE: Patient seen and examined. He reports continued abdominal pain that is mostly epigastric with some radiation to lower abdomen. He gets relief with Dilaudid. He denies chills, fever, nausea, vomiting. He has not had a bowel movement overnight. OBJECTIVE: Vital Signs Period Temp Pulse Resp BP Sys/Ybarra Pulse Ox Last 24 Hr 98.6 F-100.0 F 97-117 14-28 110-123/68-84 95-99 GENERAL: Awake, alert, and fully oriented. HEAD: Normal with no signs of trauma. EYES: Pupils equal, round and reactive to light, extraocular movements intact, sclera anicteric, conjunctiva clear. EARS, NOSE, THROAT: Ears normal, nares patent, moist mucous membranes. NECK: Normal range of motion. LUNGS: Clear to auscultation bilaterally. HEART: Regular rate and rhythm, no murmur. ABDOMEN: Hard, epigastric and lower abdominal tenderness, not distended, normoactive bowel sounds. MUSCULOSKELETAL: Normal range of motion at all joints. UPPER EXTREMITIES: Warm, well-perfused. No peripheral edema. LOWER EXTREMITIES: Warm, well-perfused. No peripheral edema. NEUROLOGICAL: Cranial nerves II-XII intact. Normal speech. PSYCHIATRIC: Cooperative. Good eye contact. Appropriate mood and affect. SKIN: Warm, dry, normal turgor. Laboratory Results - last 24 hr 03/25/20 03/25/20 03/25/20 18:46 19:24 20:25 WBC RBC Hgb Hct MCV MCH MCHC RDW Plt Count MPV Absolute Neuts (auto) Neutrophils % Lymphocytes % Monocytes % Eosinophils % Basophils % Nucleated RBC % Sodium 135 L Potassium 4.0 Chloride 102 Carbon Dioxide 24 Anion Gap 9 BUN 10.7 Creatinine 0.7 Est GFR (CKD-EPI)AfAm 140.71 Est GFR (CKD-EPI)NonAf 121.41 POC Glucometer 164 163 Random Glucose 186 H Lactic Acid Calcium 6.8 L* Phosphorus Magnesium Total Bilirubin AST ALT Alkaline Phosphatase Total Protein Albumin Triglycerides COVID-19 (BREANN) 03/25/20 03/25/20 03/25/20 20:25 21:03 22:06 WBC RBC Hgb Hct MCV MCH MCHC RDW Plt Count MPV Absolute Neuts (auto) Neutrophils % Lymphocytes % Monocytes % Eosinophils % Basophils % Nucleated RBC % Sodium Potassium Chloride Carbon Dioxide Anion Gap BUN Creatinine Est GFR (CKD-EPI)AfAm Est GFR (CKD-EPI)NonAf POC Glucometer 145 Random Glucose Lactic Acid 1.3 Calcium Phosphorus Magnesium Total Bilirubin AST ALT Alkaline Phosphatase Total Protein Albumin Triglycerides COVID-19 (BREANN) Not detected 03/26/20 03/26/20 03/26/20 00:04 00:06 01:11 WBC RBC Hgb Hct MCV MCH MCHC RDW Plt Count MPV Absolute Neuts (auto) Neutrophils % Lymphocytes % Monocytes % Eosinophils % Basophils % Nucleated RBC % Sodium 137 Potassium 3.3 L Chloride 102 Carbon Dioxide 25 Anion Gap 10 BUN 10.8 Creatinine 0.7 Est GFR (CKD-EPI)AfAm 140.71 Est GFR (CKD-EPI)NonAf 121.41 POC Glucometer 151 154 Random Glucose 160 H Lactic Acid Calcium 7.3 L Phosphorus Magnesium 2.1 Total Bilirubin 0.4 AST 51 H ALT 66 H Alkaline Phosphatase 80 Total Protein 7.0 Albumin 3.3 L Triglycerides 2177 H COVID-19 (BREANN) 03/26/20 03/26/20 03/26/20 02:08 03:20 04:09 WBC RBC Hgb Hct MCV MCH MCHC RDW Plt Count MPV Absolute Neuts (auto) Neutrophils % Lymphocytes % Monocytes % Eosinophils % Basophils % Nucleated RBC % Sodium Potassium Chloride Carbon Dioxide Anion Gap BUN Creatinine Est GFR (CKD-EPI)AfAm Est GFR (CKD-EPI)NonAf POC Glucometer 147 153 100 Random Glucose Lactic Acid Calcium Phosphorus Magnesium Total Bilirubin AST ALT Alkaline Phosphatase Total Protein Albumin Triglycerides COVID-19 (BREANN) 03/26/20 03/26/20 03/26/20 04:57 06:00 06:00 WBC 7.3 RBC 4.11 Hgb 13.1 Hct 38.4 MCV 93.4 MCH 31.8 D MCHC 34.0 RDW 13.0 Plt Count 166 D MPV 8.8 Absolute Neuts (auto) 5.7 Neutrophils % 78.8 Lymphocytes % 16.4 D Monocytes % 4.5 Eosinophils % 0.1 Basophils % 0.2 Nucleated RBC % 0 Sodium 138 Potassium 3.9 Chloride 105 Carbon Dioxide 26 Anion Gap 7 L BUN 9.6 Creatinine 0.8 Est GFR (CKD-EPI)AfAm 133.20 Est GFR (CKD-EPI)NonAf 114.93 POC Glucometer 120 Random Glucose 120 H Lactic Acid Calcium 7.2 L Phosphorus 2.4 L Magnesium 2.1 Total Bilirubin 0.4 AST 36 ALT 50 Alkaline Phosphatase 66 Total Protein 6.2 L Albumin 3.0 L Triglycerides 1145 H COVID-19 (BREANN) 03/26/20 03/26/20 03/26/20 08:40 10:40 11:39 WBC RBC Hgb Hct MCV MCH MCHC RDW Plt Count MPV Absolute Neuts (auto) Neutrophils % Lymphocytes % Monocytes % Eosinophils % Basophils % Nucleated RBC % Sodium Potassium Chloride Carbon Dioxide Anion Gap BUN Creatinine Est GFR (CKD-EPI)AfAm Est GFR (CKD-EPI)NonAf POC Glucometer 120 104 Random Glucose Lactic Acid 0.8 Calcium Phosphorus Magnesium Total Bilirubin AST ALT Alkaline Phosphatase Total Protein Albumin Triglycerides COVID-19 (BREANN) 03/26/20 03/26/20 03/26/20 13:48 15:49 17:27 WBC RBC Hgb Hct MCV MCH MCHC RDW Plt Count MPV Absolute Neuts (auto) Neutrophils % Lymphocytes % Monocytes % Eosinophils % Basophils % Nucleated RBC % Sodium Potassium Chloride Carbon Dioxide Anion Gap BUN Creatinine Est GFR (CKD-EPI)AfAm Est GFR (CKD-EPI)NonAf POC Glucometer 95 95 100 Random Glucose Lactic Acid Calcium Phosphorus Magnesium Total Bilirubin AST ALT Alkaline Phosphatase Total Protein Albumin Triglycerides COVID-19 (BREANN) Active Medications Generic Name Dose Route Start Last Admin Trade Name Freq PRN Reason Stop Dose Admin Chlorhexidine Gluconate 1 applic 03/25/20 22:00 03/25/20 22:43 Hibiclens For Decolonization - TP 1 applic HS PAMELA Administration Enoxaparin Sodium 40 mg 03/26/20 10:00 03/26/20 09:30 Lovenox - SQ 40 mg DAILY PAMELA Administration Insulin Human Regular 100 100 mls @ 4 mls/hr 03/25/20 18:15 03/25/20 18:37 units/ Sodium Chloride IVPB 4 units/hr TITR PAMELA 4 mls/hr Administration Protocol 4 UNITS/HR Dextrose/Lactated Ringer's 1,000 mls @ 250 mls/hr 03/25/20 20:15 03/26/20 09:31 D5-Lr - IV 250 mls/hr ASDIR PAMELA Administration Mupirocin 1 applic 03/25/20 22:00 03/26/20 09:32 Bactroban Ointment (For Decolonization) - NS 03/30/20 21:59 1 applic BID PAMELA Administration ASSESSMENT/PLAN: Pt is a 34 y/o male with hx of pancreatitis who presents with sudden onset epigastric abdominal pain the day of presentation. Triglycerides were initially >4000 (out of range) and lipase was 9273. He is admitted for hypertriglyceridemia-induced acute pancreatitis. #neuro -awake and alert #cardio -tachycardic today, possibly from pain, pt is normotensive -tele monitoring for significant hypertriglyceridemia #pulm -stable on room air -keep SpO2 >90 #GI -hypertriglyceridemia-induced acute pancreatitis -LR D5 @250mL/hr, titrate with following BGMs and fluid status -insulin gtt, stop when triglycerides <500, has been downtrending to 1145 -hourly BGMs -Q12H triglycerides, CBC, BMP -monitor BMP for hypokalemia/hypoglycemia while on insulin -pain management- Dilaudid or demerol preferred over morphine because of increase in pressure of Sphincter of Oddi, given Dilaudid 0.5mg with good effect -can calculate [place] score at 48 hour monty #renal -hypophosphatemia -replenish Phos -mild hyperglycemia, not requiring insulin -monitor Cr for hypoperfusion 2/2 vascular leak #ID -no evidence for infection at this time -continue to monitor WBC, vitals- no lactic acidosis present DVT Ppx Lovenox 40mg daily FEN LR D5 @250mL/hr monitor K, Phos, triglycerides NPO except ice chips Dispo: ICU Visit type - Emergency Visit Emergency Visit: Yes ED Registration Date: 03/25/20 Care time: The patient presented to the Emergency Department on the above date and was hospitalized for further evaluation of their emergent condition. - New Patient This patient is new to me today: No - Critical Care Critical Care patient: Yes Total Critical Care Time (in minutes): 36 Critical Care Statement: The care of this patient involved high complexity decision making to prevent further life threatening deterioration of the patient's condition and/or to evaluate & treat vital organ system(s) failure or risk of failure. ATTENDING PHYSICIAN STATEMENT I saw and evaluated the patient. I reviewed the resident's note and discussed the case with the resident. I agree with the resident's findings and plan as documented. SUBJECTIVE: OBJECTIVE: ASSESSMENT AND PLAN:
[2020-03-26 18:48] LABS: BASO % 1.1 % (0-2.0); EOS % 0.2 % (0-4.5); HEMATOCRIT 37.9 % (35.4-49); HEMOGLOBIN 12.9 GM/dL (11.7-16.9); LYMPH % 21.8 % (8-40); MCHC 34.1 g/dl (32.0-35.9); MEAN PLT VOLUME 8.5 fl (7.5-11.1); MONO % 7.3 % (3.8-10.2); NEUT % 69.6 % (42.8-82.8); PLATELET COUNT 158 K/MM3 (134-434); RBC 4.03 M/mm3 (4.00-5.60); RDW 13.4 % (11.9-15.9); WHITE BLOOD COUNT 4.9 K/mm3 (4.0-10.0)
[2020-03-26 19:16] LABS: ALBUMIN 2.8 g/dl (3.4-5.0); BILIRUBIN,TOTAL 0.8 mg/dL (0.2-1); BLOOD UREA NITROGEN 8.2 mg/dL (7-18); CALCIUM 7.5 mg/dL (8.5-10.1); CREATININE 0.8 mg/dL (0.55-1.3); PHOSPHOROUS 2.2 mg/dL (2.5-4.9); POTASSIUM 3.2 mmol/L (3.5-5.1); TOT PROT 5.8 g/dl (6.4-8.2)
[2020-03-26] MEDS: CHLORHEXIDINE GLUCONATE 4% CLEANSER FOR DECOLONIZATION TP SCH (21:18)
[2020-03-27] MEDS: INSULIN REGULAR 100 UNITS in SODIUM CHLORIDE 99 ML IVPB SCH (02:08)
[2020-03-27] MEDS ORDERED: DEXTROSE 50%-WATER 25 GM/50 ML DISP.SYRIN ONE (05:06)
[2020-03-27 05:53] LABS: BASO % 0.7 % (0-2.0); EOS % 0.7 % (0-4.5); HEMATOCRIT 34.8 % (35.4-49); HEMOGLOBIN 11.7 GM/dL (11.7-16.9); LYMPH % 29.8 % (8-40); MCH 31.7 pg (25.7-33.7); MCHC 33.5 g/dl (32.0-35.9); MEAN CELL VOLUME 94.6 fl (80-96); MEAN PLT VOLUME 8.2 fl (7.5-11.1); MONO % 9.3 % (3.8-10.2); NEUT % 59.5 % (42.8-82.8); PLATELET COUNT 147 K/MM3 (134-434); RBC 3.68 M/mm3 (4.00-5.60); RDW 13.4 % (11.9-15.9); WHITE BLOOD COUNT 4.8 K/mm3 (4.0-10.0)
[2020-03-27] MEDS ORDERED: DEXTROSE 50%-WATER - 25 GM/50 ML VIAL IVPUSH ONE (06:30)
[2020-03-27 06:37] LABS: ALBUMIN 2.5 g/dl (3.4-5.0); CALCIUM 7.8 mg/dL (8.5-10.1); CREATININE 0.7 mg/dL (0.55-1.3); MAGNESIUM 2.1 mg/dL (1.8-2.4); PHOSPHOROUS 2.3 mg/dL (2.5-4.9); POTASSIUM 3.6 mmol/L (3.5-5.1); TOT PROT 5.4 g/dl (6.4-8.2)
--- NOTE | 2020-03-27 08:54 | PN ---
Progress Note (short form) - Note Progress Note: Pulm/CCM Progress Note Pt seen and examined in the ICU. Still with mild abd pain. In NAD Active Medications Acetaminophen (Ofirmev Injection -) 1,000 mg IVPB Q6H PRN PRN Reason: FEVER Stop: 03/28/20 17:11 Last Admin: 03/27/20 17:38 Dose: 1,000 mg Documented by: Chlorhexidine Gluconate (Hibiclens For Decolonization -) 1 applic TP HS [facility] Last Admin: 03/26/20 21:18 Dose: 1 applic Documented by: Dextrose (D50w (Vial) -) 25 gm IVPUSH PRN PRN PRN Reason: HYPOGLYCEMIA Enoxaparin Sodium (Lovenox -) 40 mg SQ DAILY [facility] Last Admin: 03/27/20 09:28 Dose: 40 mg Documented by: Fenofibric Acid (Trilipix -) 135 mg PO DAILY [facility] Last Admin: 03/27/20 09:28 Dose: 135 mg Documented by: Dextrose/Lactated Ringer's (D5-Lr -) 1,000 mls @ 250 mls/hr IV ASDIR [facility] Last Admin: 03/27/20 15:01 Dose: 250 mls/hr Documented by: Insulin Human Regular 100 (units/ Sodium Chloride) 100 mls @ 2 mls/hr IVPB TITR [facility]; Protocol Last Admin: 03/27/20 12:30 Dose: 2 units/hr, 2 mls/hr Documented by: Mupirocin (Bactroban Ointment (For Decolonization) -) 1 applic NS BID [facility] Stop: 03/30/20 21:59 Last Admin: 03/27/20 09:28 Dose: 1 applic Documented by: Vital Signs Period Temp Pulse Resp BP Sys/Byarra Pulse Ox Last 24 Hr 99.9 F-102.3 F 101-124 18-28 109-130/73-93 96-98 Intake & Output 03/24/20 03/25/20 03/26/20 03/27/20 23:59 23:59 23:59 23:59 Intake Total 5569 3330 Output Total 400 1150 2650 Balance -400 4419 680 Weight 84.368 kg 84.368 kg Gen: NAD Neuro: A+O x3 Lungs: Clear CV:S1S2; RRR Abd: slightly distended, tender; +BMs Ext: WWP, no edema CBC,CMP WBC 4.8 K/mm3 (4.0-10.0) 03/27/20 05:40 RBC 3.68 M/mm3 (4.00-5.60) L 03/27/20 05:40 Hgb 11.7 GM/dL (11.7-16.9) 03/27/20 05:40 Hct 34.8 % (35.4-49) L 03/27/20 05:40 MCV 94.6 fl (80-96) 03/27/20 05:40 MCH 31.7 pg (25.7-33.7) 03/27/20 05:40 MCHC 33.5 g/dl (32.0-35.9) 03/27/20 05:40 RDW 13.4 % (11.9-15.9) 03/27/20 05:40 Plt Count 147 K/MM3 (134-434) 03/27/20 05:40 MPV 8.2 fl (7.5-11.1) 03/27/20 05:40 Absolute Neuts (auto) 2.9 K/mm3 (1.5-8.0) 03/27/20 05:40 Neutrophils % 59.5 % (42.8-82.8) 03/27/20 05:40 Lymphocytes % 29.8 % (8-40) D 03/27/20 05:40 Monocytes % 9.3 % (3.8-10.2) 03/27/20 05:40 Eosinophils % 0.7 % (0-4.5) D 03/27/20 05:40 Basophils % 0.7 % (0-2.0) 03/27/20 05:40 Nucleated RBC % 0 % (0-0) 03/27/20 05:40 Sodium 137 mmol/L (136-145) 03/27/20 05:40 Potassium 3.6 mmol/L (3.5-5.1) 03/27/20 05:40 Chloride 104 mmol/L (98-107) 03/27/20 05:40 Carbon Dioxide 28 mmol/L (21-32) 03/27/20 05:40 Anion Gap 5 MMOL/L (8-16) L 03/27/20 05:40 BUN 6.0 mg/dL (7-18) L 03/27/20 05:40 Creatinine 0.7 mg/dL (0.55-1.3) 03/27/20 05:40 Est GFR (CKD-EPI)AfAm 140.71 03/27/20 05:40 Est GFR (CKD-EPI)NonAf 121.41 03/27/20 05:40 POC Glucometer 92 UNITS (80-120) 03/27/20 18:26 Random Glucose 126 mg/dL (74-106) H 03/27/20 05:40 Lactic Acid 0.7 mmol/L (0.4-2.0) 03/26/20 18:32 Calcium 7.8 mg/dL (8.5-10.1) L 03/27/20 05:40 Phosphorus 2.3 mg/dL (2.5-4.9) L 03/27/20 05:40 Magnesium 2.1 mg/dL (1.8-2.4) 03/27/20 05:40 Total Bilirubin 1.0 mg/dL (0.2-1) 03/27/20 05:40 AST 31 U/L (15-37) 03/27/20 05:40 ALT 35 U/L (13-61) 03/27/20 05:40 Alkaline Phosphatase 60 U/L (45-117) 03/27/20 05:40 Total Protein 5.4 g/dl (6.4-8.2) L 03/27/20 05:40 Albumin 2.5 g/dl (3.4-5.0) L 03/27/20 05:40 Triglycerides 498 mg/dL (0-150) H 03/27/20 05:40 Cholesterol 334 mg/dL (50-200) H 03/25/20 12:02 Total LDL Cholesterol 98 mg/dL (5-100) 03/25/20 12:02 HDL Cholesterol 25 mg/dL (40-60) L 03/25/20 12:02 Lipase 9273 U/L (73-393) H 03/25/20 12:02 CT A/P 03/25: Acute pancreatitis w/o psuedocyst or abcess formation; Hepatomegaly w/ diffuse fatty infiltration of the liver. ASSESSMENT/PLAN: Acute pancreatitis due to Hypertriglyceridemia -Cont IVF -Maintain NPO -Cont IV Insulin -D5 IV while NPO -Trend triglycerides and LFTs -If worsens : will need to consider plasmapheresis : clinically and laboratory data has been improving thus far -Strict I & O -Monitor BMP, Ca -Replete electrolytes -Pain management -VTE prophylaxis -Monitor off ABX -Continue ICU monitoring Priscila Yuen, NATHANP
[2020-03-27] MEDS: DEXTROSE 5%-LACTATED RINGERS 1,000 ML IV SCH ×3 (09:00→20:15)
[2020-03-27] MEDS: ENOXAPARIN NA (PORCINE) 40 MG/0.4 ML DISP.SYRIN SQ SCH (09:28)
[2020-03-27] MEDS: FENOFIBRIC ACID 135 MG CAP PO SCH (09:28)
[2020-03-27] MEDS: MUPIROCIN 2% TOPICAL OINTMENT FOR DECOLONIZATION NS SCH ×2 (09:28→22:04)
--- NOTE | 2020-03-27 10:55 | PN ---
Teaching Attending Note Name of Resident: Sumit Villanueva ATTENDING PHYSICIAN STATEMENT I saw and evaluated the patient. I reviewed the resident's note and discussed the case with the resident. I agree with the resident's findings and plan as documented. ASSESSMENT AND PLAN: Pt. is 34 y.o. M w/ PMHx. of pancreatitis 2/2 elevated triglycerides per patient presents with abdominal pain that started the morning of hospital admission. Pt. started on Insulin gtt with marked improvement from 4000+ to now 1100. CT A/P: significant for acute pancreatitis, hepatosplenomegaly with fatty infiltrates in the liver. Abd US: no CBD dilatation, diffuse hepatic steatosis. Hemodynamically stable, clinically improving. Holding off on apheresis Monitor clinical course
[2020-03-27] MEDS ORDERED: DEXTROSE 50%-WATER - 25 GM/50 ML VIAL IVPUSH PRN (12:13)
[2020-03-27] MEDS ORDERED: INSULIN REGULAR 100 UNITS in SODIUM CHLORIDE 99 ML IVPB SCH (12:30)
[2020-03-27] MEDS ORDERED: ACETAMINOPHEN 1000 MG/100 ML VIAL (NON FORMULARY) IVPB PRN (17:11)
--- NOTE | 2020-03-27 20:28 | PN ---
Progress Note (short form) - Note Progress Note: Patient seen in follow up. No new complaints. No significant events overnight. Abdominal pain improved. Inpatient Meds reviewed. Current Medications Generic Name Dose Route Start Last Admin Trade Name Freq PRN Reason Stop Dose Admin Acetaminophen 1,000 mg 03/27/20 17:11 03/27/20 17:38 Ofirmev Injection - IVPB 03/28/20 17:11 1,000 mg Q6H PRN Administration FEVER Chlorhexidine Gluconate 1 applic 03/25/20 22:00 03/26/20 21:18 Hibiclens For Decolonization - TP 1 applic HS PAMELA Administration Dextrose 25 gm 03/27/20 12:13 D50w (Vial) - IVPUSH PRN PRN HYPOGLYCEMIA Enoxaparin Sodium 40 mg 03/26/20 10:00 03/27/20 09:28 Lovenox - SQ 40 mg DAILY PAMELA Administration Fenofibric Acid 135 mg 03/27/20 10:00 03/27/20 09:28 Trilipix - PO 135 mg DAILY PAMELA Administration Dextrose/Lactated Ringer's 1,000 mls @ 250 mls/hr 03/25/20 20:15 03/27/20 15:01 D5-Lr - IV 250 mls/hr ASDIR PAMELA Administration Insulin Human Regular 100 100 mls @ 2 mls/hr 03/27/20 12:30 03/27/20 12:30 units/ Sodium Chloride IVPB 2 units/hr TITR PAMELA 2 mls/hr Administration Protocol 2 UNITS/HR Mupirocin 1 applic 03/25/20 22:00 03/27/20 09:28 Bactroban Ointment (For Decolonization) - NS 03/30/20 21:59 1 applic BID PAMELA Administration On Examination: Last Vital Signs Temp Pulse Resp BP Pulse Ox 100.1 F H 102 H 20 117/80 98 03/27/20 18:55 03/27/20 18:55 03/27/20 18:55 03/27/20 18:55 03/27/20 17:00 General: In no acute distress, lying comfortably in bed. Extremities: No pallor or icterus. No pedal edema. No palpable lymphadenopathy. CVS: S1, S2, regular, no gallop or murmur. Chest: good air entry bilaterally, clear Abdomen: Non-distend, no palpable organomegaly Neuro: Alert, oriented, non-focal. Labs: CBC, BMP 03/27/20 05:40 03/27/20 05:40 Assessment. Pancreatitis with severe triglyceridemia. TG level trending down briskly in response to insulin Clinically improving. No indication for plasmapheresis presently.
[2020-03-27] MEDS: CHLORHEXIDINE GLUCONATE 4% CLEANSER FOR DECOLONIZATION TP SCH (22:05)
--- NOTE | 2020-03-28 08:55 | PN ---
Progress Note (short form) - Note Progress Note: Pulm/CCM Progress Note Pt seen and examined in the ICU. Denies abdominal pain, nausea or vomiting. OOB Active Medications Acetaminophen (Ofirmev Injection -) 1,000 mg IVPB Q6H PRN PRN Reason: FEVER Stop: 03/28/20 17:11 Last Admin: 03/27/20 17:38 Dose: 1,000 mg Documented by: Chlorhexidine Gluconate (Hibiclens For Decolonization -) 1 applic TP HS [facility] Last Admin: 03/27/20 22:05 Dose: 1 applic Documented by: Dextrose (D50w (Vial) -) 25 gm IVPUSH PRN PRN PRN Reason: HYPOGLYCEMIA Enoxaparin Sodium (Lovenox -) 40 mg SQ DAILY [facility] Last Admin: 03/28/20 10:29 Dose: 40 mg Documented by: Fenofibric Acid (Trilipix -) 135 mg PO DAILY [facility] Last Admin: 03/28/20 10:33 Dose: 135 mg Documented by: Dextrose/Lactated Ringer's (D5-Lr -) 1,000 mls @ 250 mls/hr IV ASDIR [facility] Last Admin: 03/28/20 10:30 Dose: 250 mls/hr Documented by: Mupirocin (Bactroban Ointment (For Decolonization) -) 1 applic NS BID [facility] Stop: 03/30/20 21:59 Last Admin: 03/28/20 10:29 Dose: 1 applic Documented by: Vital Signs Period Temp Pulse Resp BP Sys/Ybarra Pulse Ox Last 24 Hr 98.6 F-102.3 F 86-110 16-22 110-130/70-93 95-98 Intake & Output 03/25/20 03/26/20 03/27/20 03/28/20 23:59 23:59 23:59 23:59 Intake Total 2443 7521 3024 Output Total 400 1150 2650 1000 Balance -400 4418 9854 2023 Weight 84.368 kg 84.368 kg Gen: NAD Neuro: A+O x3 Lungs: Clear CV:S1S2; RRR Abd: slightly distended, tender; +BMs Ext: WWP, no edema CBC, BMP 03/28/20 09:20 03/28/20 09:20 CT A/P 03/25: Acute pancreatitis w/o psuedocyst or abcess formation; Hepatomegaly w/ diffuse fatty infiltration of the liver. ASSESSMENT/PLAN: Acute pancreatitis due to Hypertriglyceridemia -Cont IVF -Start clear liquid diet -D/c insulin drip, triglyceride level 429 today am -Trend triglycerides and LFTs -If worsens : will need to consider plasmapheresis : clinically and laboratory data has been improving thus far -Strict I & O -Monitor BMP, Ca -Replete electrolytes, keep Mg>2, K>4 -Lovenox DVT prophylaxis -If tolerates PO diet can transfer to [facility] Dispo: full code Lili Carrero, ACNP [id number]
[2020-03-28 10:03] LABS: HEMATOCRIT 34.3 % (35.4-49); HEMOGLOBIN 11.8 GM/dL (11.7-16.9); MCH 32.6 pg (25.7-33.7); MCHC 34.3 g/dl (32.0-35.9); MEAN PLT VOLUME 8.3 fl (7.5-11.1); PLATELET COUNT 164 K/MM3 (134-434); RBC 3.61 M/mm3 (4.00-5.60); RDW 13.3 % (11.9-15.9); WHITE BLOOD COUNT 6.2 K/mm3 (4.0-10.0)
[2020-03-28 10:20] LABS: ALBUMIN 2.8 g/dl (3.4-5.0); BILIRUBIN,TOTAL 0.8 mg/dL (0.2-1); BLOOD UREA NITROGEN 3.1 mg/dL (7-18); CALCIUM 8.9 mg/dL (8.5-10.1); CREATININE 0.6 mg/dL (0.55-1.3); MAGNESIUM 2.4 mg/dL (1.8-2.4); POTASSIUM 3.8 mmol/L (3.5-5.1); TOT PROT 6.3 g/dl (6.4-8.2)
[2020-03-28] MEDS: MUPIROCIN 2% TOPICAL OINTMENT FOR DECOLONIZATION NS SCH (10:29)
[2020-03-28] MEDS: ENOXAPARIN NA (PORCINE) 40 MG/0.4 ML DISP.SYRIN SQ SCH (10:29)
[2020-03-28] MEDS: DEXTROSE 5%-LACTATED RINGERS 1,000 ML IV SCH (10:30)
[2020-03-28] MEDS ORDERED: PT OWN MED DRAWER 7, Y5N ONE (10:32)
[2020-03-28] MEDS: FENOFIBRIC ACID 135 MG CAP PO SCH (10:33)
--- NOTE | 2020-03-28 15:41 | PN ---
Progress Note (short form) - Note Progress Note: Patient seen in follow up. No complaints. No significant events overnight. Inpatient Meds reviewed. Current Medications Generic Name Dose Route Start Last Admin Trade Name Freq PRN Reason Stop Dose Admin Acetaminophen 1,000 mg 03/27/20 17:11 03/27/20 17:38 Ofirmev Injection - IVPB 03/28/20 17:11 1,000 mg Q6H PRN Administration FEVER Chlorhexidine Gluconate 1 applic 03/25/20 22:00 03/27/20 22:05 Hibiclens For Decolonization - TP 1 applic HS PAMELA Administration Dextrose 25 gm 03/27/20 12:13 D50w (Vial) - IVPUSH PRN PRN HYPOGLYCEMIA Enoxaparin Sodium 40 mg 03/26/20 10:00 03/28/20 10:29 Lovenox - SQ 40 mg DAILY PAMELA Administration Fenofibric Acid 135 mg 03/27/20 10:00 03/28/20 10:33 Trilipix - PO 135 mg DAILY PAMELA Administration Dextrose/Lactated Ringer's 1,000 mls @ 250 mls/hr 03/25/20 20:15 03/28/20 10:30 D5-Lr - IV 250 mls/hr ASDIR PAMELA Administration Mupirocin 1 applic 03/25/20 22:00 03/28/20 10:29 Bactroban Ointment (For Decolonization) - NS 03/30/20 21:59 1 applic BID PAMELA Administration On Examination: Last Vital Signs Temp Pulse Resp BP Pulse Ox 98.6 F 95 H 17 111/78 96 03/28/20 02:00 03/28/20 12:00 03/28/20 12:00 03/28/20 10:00 03/28/20 10:00 General: In no acute distress, Neuro: Alert, oriented, non-focal. Labs: CBC, BMP 03/28/20 09:20 03/28/20 09:20 Assessment. Pancreatitis with severe triglyceridemia. TG level continues to trend down. No indication for plasmapheresis presently.
[2020-03-28] MEDS ORDERED: DEXTROSE 5%-LACTATED RINGERS 1,000 ML IV SCH (16:31)
[2020-03-28] MEDS ORDERED: LACTATED RINGERS SOLUTION 1,000 ML/1,000 ML INFUS.BAG IV SCH (16:45)
[2020-03-28] MEDS ORDERED: DEXTROSE 50%-WATER - 25 GM/50 ML VIAL IVPUSH PRN (18:53)
[2020-03-28] MEDS: LACTATED RINGERS SOLUTION 1,000 ML/1,000 ML INFUS.BAG IV SCH (20:48)
[2020-03-29 08:05] LABS: BASO % 0.6 % (0-2.0); EOS % 1.8 % (0-4.5); HEMATOCRIT 34.2 % (35.4-49); HEMOGLOBIN 11.6 GM/dL (11.7-16.9); LYMPH % 23.1 % (8-40); MCH 32.1 pg (25.7-33.7); MCHC 33.9 g/dl (32.0-35.9); MEAN CELL VOLUME 94.7 fl (80-96); MEAN PLT VOLUME 8.5 fl (7.5-11.1); NEUT % 62.5 % (42.8-82.8); PLATELET COUNT 194 K/MM3 (134-434); RBC 3.61 M/mm3 (4.00-5.60); WHITE BLOOD COUNT 5.7 K/mm3 (4.0-10.0)
[2020-03-29 08:28] LABS: ALBUMIN 2.9 g/dl (3.4-5.0); BILIRUBIN,TOTAL 0.8 mg/dL (0.2-1); BLOOD UREA NITROGEN 7.1 mg/dL (7-18); CALCIUM 8.9 mg/dL (8.5-10.1); CREATININE 0.6 mg/dL (0.55-1.3); MAGNESIUM 2.4 mg/dL (1.8-2.4); PHOSPHOROUS 4.7 mg/dL (2.5-4.9); POTASSIUM 3.8 mmol/L (3.5-5.1); TOT PROT 6.4 g/dl (6.4-8.2)
[2020-03-29] MEDS: ENOXAPARIN NA (PORCINE) 40 MG/0.4 ML DISP.SYRIN SQ SCH (10:01)
[2020-03-29] MEDS: FENOFIBRIC ACID 135 MG CAP PO SCH (10:01)
--- NOTE | 2020-03-29 15:45 | PN ---
Physical Exam: SUBJECTIVE: Patient seen and examined. Sitting upright in comfort, able to speak in full sentences. No new complaints. No acute overnight events. Denies any associate fevers, chills, chest pain, SOB, nausea, vomiting, diarrhea, constipation. OBJECTIVE: Vital Signs Period Temp Pulse Resp BP Sys/Ybarra Pulse Ox Last 24 Hr 97.8 F-99.7 F 63-95 16-25 101-138/53-82 96-97 GENERAL: A&Ox3, NAD HEAD: NCAT EYES: PERRL, EOMI ENT: Moist mucous membranes. NECK: No JVD LUNGS: Diminished breath sounds at the bases, No wheezes, no crackles HEART: RRR S1 S2 ABDOMEN: Soft, nontender, not distended, + bowel sounds EXTREMITIES: No peripheral edema. NEUROLOGICAL: Cranial nerves II-XII intact. SKIN: Warm, dry Laboratory Results - last 24 hr 03/28/20 03/28/20 03/29/20 16:19 22:04 01:47 WBC RBC Hgb Hct MCV MCH MCHC RDW Plt Count MPV Absolute Neuts (auto) Neutrophils % Lymphocytes % Monocytes % Eosinophils % Basophils % Nucleated RBC % Sodium Potassium Chloride Carbon Dioxide Anion Gap BUN Creatinine Est GFR (CKD-EPI)AfAm Est GFR (CKD-EPI)NonAf POC Glucometer 99 91 93 Random Glucose Calcium Phosphorus Magnesium Total Bilirubin AST ALT Alkaline Phosphatase Total Protein Albumin Triglycerides 03/29/20 03/29/20 03/29/20 05:50 06:43 06:43 WBC 5.7 RBC 3.61 L Hgb 11.6 L Hct 34.2 L MCV 94.7 MCH 32.1 MCHC 33.9 RDW 13.0 Plt Count 194 MPV 8.5 Absolute Neuts (auto) 3.6 Neutrophils % 62.5 Lymphocytes % 23.1 D Monocytes % 12.0 H Eosinophils % 1.8 D Basophils % 0.6 Nucleated RBC % 0 Sodium 142 Potassium 3.8 Chloride 106 Carbon Dioxide 26 Anion Gap 10 BUN 7.1 Creatinine 0.6 Est GFR (CKD-EPI)AfAm 149.92 Est GFR (CKD-EPI)NonAf 129.35 POC Glucometer 103 Random Glucose 92 Calcium 8.9 Phosphorus 4.7 Magnesium 2.4 Total Bilirubin 0.8 AST 111 H ALT 114 H Alkaline Phosphatase 99 Total Protein 6.4 Albumin 2.9 L Triglycerides 370 H 03/29/20 11:39 WBC RBC Hgb Hct MCV MCH MCHC RDW Plt Count MPV Absolute Neuts (auto) Neutrophils % Lymphocytes % Monocytes % Eosinophils % Basophils % Nucleated RBC % Sodium Potassium Chloride Carbon Dioxide Anion Gap BUN Creatinine Est GFR (CKD-EPI)AfAm Est GFR (CKD-EPI)NonAf POC Glucometer 77 Random Glucose Calcium Phosphorus Magnesium Total Bilirubin AST ALT Alkaline Phosphatase Total Protein Albumin Triglycerides Active Medications Generic Name Dose Route Start Last Admin Trade Name Freq PRN Reason Stop Dose Admin Dextrose 25 gm 03/28/20 18:53 D50w (Vial) - IVPUSH PRN PRN HYPOGLYCEMIA Enoxaparin Sodium 40 mg 03/29/20 10:00 03/29/20 10:01 Lovenox - SQ 40 mg DAILY PAMELA Administration Fenofibric Acid 135 mg 03/29/20 10:00 03/29/20 10:01 Trilipix - PO 135 mg DAILY PAMELA Administration Lactated Ringer's 1,000 ml in 1,000 mls @ 75 mls/hr 03/28/20 18:53 03/28/20 20:48 Lactated Ringers Solution IV Not Given ASDIR PAMELA ASSESSMENT/PLAN: 34 y/o M PMHx Pancreatitis who presents with sudden onset epigastric abdominal pain, Found to have triglycerides >4000 and lipase was 9273 and admitted to ICU hypertriglyceridemia-induced acute pancreatitis requiring Insulin GTT. Patients Triglycerides trended down, his abdominal pain resolved and his diet was advanced. Patient was transferred to med-surg. #Hypertriglyceridemia-induced acute pancreatitis -Has had prior episodes of the same in the past and says his cholesterol medication was recently discontinued -Completed Insulin GTT Therapy -Start Fenofibric acid -Continue IV Hydration -Hematology consulted, no indication for plasmapheresis at this time -pain control -Advance diet as tolerated -Check A1c, TSH #Transaminitis -Likely due to Fenofibric acid use -Trend LFTs, WIll consider switching to another agent if continue to rising in addition to imaging #hypophosphatemia, Repleted #PPx -DVT: Lovenox 40mg daily #FEN -LR @ 75 -Replete lytes PRN -Soft diet Dispo: Med-surg Visit type - Emergency Visit Emergency Visit: Yes ED Registration Date: 03/25/20 Care time: The patient presented to the Emergency Department on the above date and was hospitalized for further evaluation of their emergent condition. - New Patient This patient is new to me today: Yes Date on this admission: 03/29/20 - Critical Care Critical Care patient: No ATTENDING PHYSICIAN STATEMENT I saw and evaluated the patient. I reviewed the resident's note and discussed the case with the resident. I agree with the resident's findings and plan as documented. SUBJECTIVE: OBJECTIVE: ASSESSMENT AND PLAN:
--- NOTE | 2020-03-29 16:00 | PN ---
Teaching Attending Note Name of Resident: Kianna Bartlett ATTENDING PHYSICIAN STATEMENT I saw and evaluated the patient. I reviewed the resident's note and discussed the case with the resident. I agree with the resident's findings and plan as documented. 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 HEAD: Normal with no signs of trauma. EYES: Pupils equal, round and reactive to light, extraocular movements intact, sclera anicteric, conjunctiva clear. No lid lag. EARS, NOSE, THROAT: Ears normal, nares patent, oropharynx clear without exudates. Moist mucous membranes. NECK: Normal range of motion, supple without lymphadenopathy, JVD, or masses. LUNGS: Breath sounds equal, clear to auscultation bilaterally. No wheezes, and no crackles. No accessory muscle use. HEART: Regular rate and rhythm, normal S1 and S2 without murmur, rub or gallop. ABDOMEN: Soft, nontender, not distended, normoactive bowel sounds, no guarding, no rebound, no masses. No hepatomegaly or splenomegaly. MUSCULOSKELETAL: Normal range of motion at all joints. No bony deformities or tenderness. No CVA tenderness. UPPER EXTREMITIES: 2+ pulses, warm, well-perfused. No cyanosis. No clubbing. Cap refill <2 seconds. No peripheral edema. LOWER EXTREMITIES: 2+ pulses, warm, well-perfused. No calf tenderness. No peripheral edema. NEUROLOGICAL: Cranial nerves II-XII intact. Normal speech. Normal gait. PSYCHIATRIC: Cooperative. Good eye contact. Appropriate mood and affect. SKIN: Warm, dry, normal turgor, no rashes or lesions noted. ASSESSMENT AND PLAN: 34 y/o M with Hx of pancreatitis who presents with pancreatitis in setting of hypertriglyceridemia Pancreatitis: s/p Insulin infusion in ICU triglyceride level improved advance diet today Start on Fenofibrate at this time Check A1c, TSH If patient can tolerate full diet tonight, can likely be discharged in the AM
[2020-03-29] MEDS: LACTATED RINGERS SOLUTION 1,000 ML/1,000 ML INFUS.BAG IV SCH (17:34)
[2020-03-30] MEDS: LACTATED RINGERS SOLUTION 1,000 ML/1,000 ML INFUS.BAG IV SCH (05:36)
[2020-03-30 08:04] LABS: ALBUMIN 3.3 g/dl (3.4-5.0); BILIRUBIN,TOTAL 0.6 mg/dL (0.2-1); CALCIUM 9.2 mg/dL (8.5-10.1); CREATININE 0.7 mg/dL (0.55-1.3); POTASSIUM 4.2 mmol/L (3.5-5.1)
[2020-03-30] MEDS ORDERED: PT OWN MED DRAWER 7, Y5N ONE (09:21)
[2020-03-30] MEDS: FENOFIBRIC ACID 135 MG CAP PO SCH (09:23)
[2020-03-30] MEDS: ENOXAPARIN NA (PORCINE) 40 MG/0.4 ML DISP.SYRIN SQ SCH (09:23)
[2020-03-30 14:13] VITALS: BP 105/72; PULSE 67; TEMP 98.5
--- NOTE | 2020-03-30 16:47 | PN ---
Teaching Attending Note Name of Resident: Paulina Muhammad ATTENDING PHYSICIAN STATEMENT I saw and evaluated the patient. I reviewed the resident's note and discussed the case with the resident. I agree with the resident's findings and plan as documented. SUBJECTIVE: Patient is comfortable with no acute distress. no further pain. OBJECTIVE: Vital Signs Temperature 98.5 F 03/30/20 14:12 Pulse Rate 67 03/30/20 14:12 Respiratory Rate 18 03/30/20 14:12 Blood Pressure 105/72 03/30/20 14:12 O2 Sat by Pulse Oximetry (%) 97 03/30/20 08:49 pe:PER RESIDENT'S NOTE CBCD WBC 5.7 K/mm3 (4.0-10.0) 03/29/20 06:43 RBC 3.61 M/mm3 (4.00-5.60) L 03/29/20 06:43 Hgb 11.6 GM/dL (11.7-16.9) L 03/29/20 06:43 Hct 34.2 % (35.4-49) L 03/29/20 06:43 MCV 94.7 fl (80-96) 03/29/20 06:43 MCHC 33.9 g/dl (32.0-35.9) 03/29/20 06:43 RDW 13.0 % (11.9-15.9) 03/29/20 06:43 Plt Count 194 K/MM3 (134-434) 03/29/20 06:43 MPV 8.5 fl (7.5-11.1) 03/29/20 06:43 CMP Sodium 141 mmol/L (136-145) 03/30/20 06:55 Potassium 4.2 mmol/L (3.5-5.1) 03/30/20 06:55 Chloride 106 mmol/L (98-107) 03/30/20 06:55 Carbon Dioxide 29 mmol/L (21-32) 03/30/20 06:55 Anion Gap 7 MMOL/L (8-16) L 03/30/20 06:55 BUN 13.0 mg/dL (7-18) 03/30/20 06:55 Creatinine 0.7 mg/dL (0.55-1.3) 03/30/20 06:55 Random Glucose 95 mg/dL (74-106) 03/30/20 06:55 Calcium 9.2 mg/dL (8.5-10.1) 03/30/20 06:55 Total Bilirubin 0.6 mg/dL (0.2-1) 03/30/20 06:55 AST 58 U/L (15-37) H 03/30/20 06:55 ALT 94 U/L (13-61) H 03/30/20 06:55 Alkaline Phosphatase 108 U/L (45-117) 03/30/20 06:55 Total Protein 7.0 g/dl (6.4-8.2) 03/30/20 06:55 Albumin 3.3 g/dl (3.4-5.0) L 03/30/20 06:55 Current Medications Generic Name Dose Route Start Last Admin Trade Name Freq PRN Reason Stop Dose Admin Dextrose 25 gm 03/28/20 18:53 D50w (Vial) - IVPUSH PRN PRN HYPOGLYCEMIA Enoxaparin Sodium 40 mg 03/29/20 10:00 03/30/20 09:23 Lovenox - SQ 40 mg DAILY PAMELA Administration Fenofibric Acid 135 mg 03/29/20 10:00 03/30/20 09:23 Trilipix - PO 135 mg DAILY PAMELA Administration Lactated Ringer's 1,000 ml in 1,000 mls @ 75 mls/hr 03/28/20 18:53 03/30/20 05:36 Lactated Ringers Solution IV 75 mls/hr ASDIR PAMELA Administration Home Medications Medication Instructions Recorded Fenofibrate Nanocrystallized 145 mg PO DAILY #30 tablet 09/13/12 [Tricor] ASSESSMENT AND PLAN: This patient is a 34yom with PMhx of pancreatitis who presents with pancreatitis in setting of hypertriglyceridemia # Acute Pancreatitis: s/p Insulin infusion in ICU, due to elevated TGs # Triglyceridemia level improved will dc the patient on tricor and fish oil lovaza 2gm bid, diet modification , discussed with the patient no fried food , needs to stay with lean meat , increase the fiber intake. will dc the patient on tricor and lovaza home today
--- NOTE | 2020-03-30 17:40 | DS ---
Physical Exam: SUBJECTIVE: Patient seen and examined, feeling back to his normal self. No events overnight and patient wants to go home. Had a BM this morning. Also discussed alcohol intake - patient explained that he only drinks recreationally, not daily. OBJECTIVE: Vital Signs Period Temp Pulse Resp BP Sys/Ybarra Pulse Ox Last 24 Hr 97.6 F-98.5 F 57-81 18-18 102-117/66-78 96-98 PHYSICAL EXAM GENERAL: awake, alert, fully oriented, in no acute distress HEAD: Normal with no signs of trauma EYES: PERRL, extraocular movements intact LUNGS: CTAB, no wheezing HEART: RRR, S1, S2 without murmur ABDOMEN: Soft, nontender, nondistended, active bowel sounds, no hepatosplenomegaly EXTREMITIES: palpable peripheral pulses, warm, well-perfused, no edema NEUROLOGICAL: Cranial nerves II through XII grossly intact. Normal speech with symmetrical smile PSYCH: appropriate mood and affect SKIN: Warm, normal turgor, no rashes or lesions noted LABS Laboratory Results - last 24 hr 03/29/20 03/29/20 03/30/20 17:29 21:37 05:34 Sodium Potassium Chloride Carbon Dioxide Anion Gap BUN Creatinine Est GFR (CKD-EPI)AfAm Est GFR (CKD-EPI)NonAf POC Glucometer 82 108 98 Random Glucose Hemoglobin A1c % Calcium Total Bilirubin AST ALT Alkaline Phosphatase Total Protein Albumin TSH 03/30/20 03/30/20 03/30/20 06:55 06:55 11:24 Sodium 141 Potassium 4.2 Chloride 106 Carbon Dioxide 29 Anion Gap 7 L BUN 13.0 Creatinine 0.7 Est GFR (CKD-EPI)AfAm 140.71 Est GFR (CKD-EPI)NonAf 121.41 POC Glucometer 104 Random Glucose 95 Hemoglobin A1c % 5.3 Calcium 9.2 Total Bilirubin 0.6 AST 58 H ALT 94 H Alkaline Phosphatase 108 Total Protein 7.0 Albumin 3.3 L TSH 2.53 03/30/20 16:33 Sodium Potassium Chloride Carbon Dioxide Anion Gap BUN Creatinine Est GFR (CKD-EPI)AfAm Est GFR (CKD-EPI)NonAf POC Glucometer 99 Random Glucose Hemoglobin A1c % Calcium Total Bilirubin AST ALT Alkaline Phosphatase Total Protein Albumin TSH HOSPITAL COURSE: Patient came to the hospital on 03/25/20 due to severe epigastric abdominal pain. ED course was remarkable for hypertriglyceridemia (>4000 - out of range) and lipase of 9273. EKG showed sinus bradycardia with premature supraventricular co mlexes and incomplete RBBB. CT scan showed findings consistent with acute pancreatitis, hepatosplenomegaly, and diffuse fatty infiltration of the liver. Patient was admitted to the ICU before being tranferred to the floors, where he was managed with fluids, pain medications, and fenofibric acid. Patient's lab values are continuously downtrending towards normal limits and patient has been optimized for discharge to go home. Date of Admission:03/25/20 Date of Discharge: 03/30/20 Minutes to complete discharge: 37 Discharge Summary Problems reviewed: Yes Reason For Visit: HYPERTRIGLYCERIDEMIA PANCREATITIS Current Active Problems Hypertriglyceridemia (Acute) Pancreatitis (Acute) Condition: Stable - Instructions Diet, Activity, Other Instructions: Hospital Visit: You came to the hospital on 03/25/20 with severe abdominal pain. Your pancreas was found to be inflamed and you had very high triglyceride levels and therefore needed admission to the intensive care unit. We gave you medications and fluids which helped you, and your laboratory values are going in the right direction, heading towards normal. Medications: Start Lovasa 2,000mg twice a day Start Tricor 145mg once a day Labs: You overall values have been getting better, except for your "liver function" markers that have been increasing a bit. This is because of the medication fenofibric acid that we started you on - re-check you LFTs when you visit your primary care doctor. Diet: Recommend eating fish at least twice per week, such as salmon, mackerel, sardines, tuna, because they have omega-3 fatty acids which can help lower triclyceride levels. Also, overall recommend a well balanced diet including much vegetables and fruit - best is home cooked food. Highly recommend avoiding fast food as it contains plenty salt, bad fats, and other unhealthy ingredients. STAY AWAY FROM ANY FRIED FOOD. Also highly recommend NO alcohol intake, as this can cause pancreatitis and make you very sick. YOU CAN GO TO [facility] TO AVOID ALCOHOL INTAKE. Exercise/activity: You can move around as much as you can tolerate, as long as you are not feeling any pain. Follow-up with your doctor visits: - your primary doctor Other instructions: If you start feeling nausea, vomiting, diarrhea, fever, or any other symptoms that make you feel that your pancreas could be inflamed, please go to the nearest Emergency Room or call 911. Referrals: Guevara Loaiza MD [Staff Physician] - 1 Week (resident clinic ) Disposition: HOME - Home Medications Comprehensive Discharge Medication List: Ambulatory Orders Fenofibrate Nanocrystallized [Tricor] 145 mg PO DAILY #30 tablet 03/30/20 Ceres-3 Acid Ethyl Esters [Lovaza -] 2,000 mg PO BID #30 capsule 03/30/20 This patient is new to me today: Yes Date on this admission: 03/30/20 Emergency Visit: Yes ED Registration Date: 03/25/20 Care time: The patient presented to the Emergency Department on the above date and was hospitalized for further evaluation of their emergent condition. Critical Care patient: No - Discharge Referral Referred to [facility] No ATTENDING PHYSICIAN STATEMENT I saw and evaluated the patient. I reviewed the resident's note and discussed the case with the resident. I agree with the resident's findings and plan as documented. SUBJECTIVE: OBJECTIVE: ASSESSMENT AND PLAN:
== END 2020-03-30 19:03 | disposition home or self-care (01) | DRG 423 ==
LOC: JER 10:42 → JERBED 19:09 → JICU 21:25 → J7W 03-28 18:56
PROVIDERS: ADMIT Internal Medicine; ATTEND Internal Medicine
PROC: 3E033VG Introduction of Insulin into Peripheral Vein, Percutaneous Approach (ICD-10-PCS; principal; 2020-03-25)
DX: E78.1 Pure hyperglyceridemia (principal); R73.9 Hyperglycemia, unspecified; R16.2 Hepatomegaly with splenomegaly, not elsewhere classified; K85.80 Other acute pancreatitis without necrosis or infection; E83.39 Other disorders of phosphorus metabolism; K76.0 Fatty (change of) liver, not elsewhere classified; R74.0 Nonspecific elevation of levels of transaminase and lactic acid dehydrogenase [LDH]; R00.0 Tachycardia, unspecified
CPT/HCPCS: 36415; 71045-TC-FY; 74177-TC; 76705-TC; 80048; 80053; 80061; 81003; 82962; 83036; 83605; 83690; 83721; 83735; 84100; 84443; 84478; 85025; 85027; 85610; 87086; 93005; 93010; 99285-25; J0131; U0003